=== PATIENT | female | born 1935 | race Caucasian/White ===

== ENCOUNTER 2020-05-21 09:21 | Inpatient (IN) ==
[2020-05-21] MEDS ORDERED: NORMAL SALINE 1,000 ML IV ONE ×3 (09:30→14:43)
--- NOTE | 2020-05-21 10:04 | ERNOTE ---
Dyspnea - Date Date of Service: 05/21/20 - General Presenting Symptoms: other - Low oxygen and not eating. Sores in her mouth. Time Seen by Provider: 05/21/20 09:27 Source: patient, EMS Exam Limitations: clinical condition - Immun/Allergies/Home Medications Immunizations: IMMUNIZATION HX Immunizations Up to Date Yes History of Influenza Vaccine Yes Hx Pneumococcal Vaccination Yes Allergies/Adverse Reactions: Allergies simvastatin [From Zocor] Adverse Reaction (Mild, Verified 05/21/20 17:19) MYALGIA Home Medications: HOME MEDICATIONS Durable Medical Equipment See Dose Instructions .ROUTE .MEDSUPPLY #1 ea 01/17/19 [Last Taken Unknown] ibuprofen 600 mg tablet 600 mg PO Q6H PRN #90 tab 01/17/19 [Last Taken Unknown] tramadol 50 mg tablet 50 mg PO Q6H PRN #60 tab 01/17/19 [Last Taken Unknown] aspirin 81 mg tablet,delayed release 81 mg PO DAILY #90 tab 11/15/19 [Last Taken Unknown] clopidogrel 75 mg tablet 75 mg PO DAILY #90 tab 11/15/19 [Last Taken Unknown] hydrochlorothiazide 25 mg tablet 25 mg PO DAILY #90 tab 11/15/19 [Last Taken Unknown] potassium chloride 10 mEq tablet,extended release 10 meq PO DAILY #90 tab 11/15/19 [Last Taken Unknown] acetaminophen 500 mg capsule 500 mg PO DAILY PRN #30 cap 03/24/20 [Last Taken Unknown] acetaminophen 500 mg capsule 500 mg PO TID #90 cap 03/25/20 [Last Taken Unknown] loperamide 2 mg tablet 2 mg PO .COMPLEX PRN #30 tab 05/15/20 [Last Taken Unknown] Alendronate Sodium [Fosamax] 70 mg PO TU 05/21/20 [Last Taken Unknown] Atorvastatin Calcium 40 mg PO HS 05/21/20 [Last Taken Unknown] Bisacodyl 5 mg PO DAILY PRN 05/21/20 [Last Taken Unknown] Docusate Sodium 200 mg PO DAILY 05/21/20 [Last Taken Unknown] Escitalopram Oxalate 5 mg PO DAILY 05/21/20 [Last Taken Unknown] Escitalopram Oxalate 10 mg PO DAILY 05/21/20 [Last Taken Unknown] Fexofenadine HCl [Aller-Ease] 180 mg PO DAILY 05/21/20 [Last Taken Unknown] Lisinopril [Zestril] 40 mg PO BID 05/21/20 [Last Taken Unknown] Omeprazole 20 mg PO QAM 05/21/20 [Last Taken Unknown] cholecalciferol (vitamin D3) 50 mcg (2,000 unit) tablet 1 tab PO DAILY 05/21/20 [Last Taken Unknown] - History of Present Illness Narrative: This patient is an 85-year-old female from [facility] the nursing homes. She is Covid positive, diagnosed 05/15. She is having increased oxygen needs at the home. She has sores in her mouth. She has not been eating. The patient denies pain or difficulty breathing. She denies fever. Review of Systems - Narrative Narrative: It is limited due to her decreased ability to talk. She answered negative to everything asked. Medical History (Last Reviewed 05/21/20 @ 10:02 by Joe Bai MD) Olecranon fracture (Acute) avulsion Hyperlipidemia (Chronic) Onset Date: Unknown Hypertension (Chronic) Onset Date: ~01/02/14 Depression (Chronic) Onset Date: Unknown Cholelithiasis (Chronic) Onset Date: ~11/2008 biliary colic CVA (cerebral vascular accident) (Chronic) Onset Date: ~05/201311/21/13 Right basal ganglia infarct Basal ganglia infarction (Chronic) Onset Date: ~01/02/14 Anxiety (Chronic) Onset Date: ~01/02/14 Radius fracture Onset Date: Unknown alone, unspecified part, closed. RIGHT Osteoporosis Onset Date: Unknown Postmenopausal bleeding Onset Date: Unknown Surgical History: Surgical History (Last Reviewed 05/21/20 @ 10:02 by Joe Bai MD) H/O colonoscopy Onset Date: ~2006 [facility] History of appendectomy Onset Date: Unknown Ruptured History of foot surgery Onset Date: Unknown History of open reduction and internal fixation (ORIF) procedure Onset Date: ~06/22/12 left proximal humerus fracture Hx laparoscopic cholecystectomy Onset Date: ~11/25/08 Tinguely; with mild lysis of adhesions Family History: Family History (Last Reviewed 05/21/20 @ 10:02 by Joe Bai MD) Mother Rectal cancer Father CVA (cerebral vascular accident) Other Cancer Hyperlipemia Hypertension Social History: (Last Reviewed 05/21/20 @ 10:02 by Joe Bai MD) Social History: adopted: No Marital status: / lives independently: No number of children: 3 current occupational status: retired current occupation: retired Highest level of school completed/degree received: Bachelor's degree Service: No Tobacco: Smoking Status: Former smoker Alcohol: alcohol intake: current alcohol intake frequency: a few times a month Substance Use: substance use type: does not use Dietary Habits: caffeine: Yes Physical Exam - Physical Exam General Appearance: Present: wd/wn, alert, no apparent distress Head Exam: Present: normal inspection, no evidence of injury Eye Exam: Normal inspection: bilateral Ears, Nose, Throat: Present: other - Normal externally. The oropharynx is crusty. No obvious lesions. Neck: Present: normal inspection, supple Respiratory: Present: no respiratory distress, lungs clear, decreased breath sounds Cardiovascular/Chest: Present: regular rate, rhythm, no murmur Gastrointestinal/Abdominal: Present: normal bowel sounds, nontender, nondistended, soft, no organomegaly Extremity Exam: Present: normal inspection Neurological Exam: Present: alert, other - Decreased speech and difficulty speaking likely due to the mouth issues. Skin Exam: Present: normal color, warm/dry Progress - Date and Time Seen: Date and Time: 05/22/20 00:18 The patient was reported to have some decreased mental functioning. There were some concerns by the senior care about worsening of a TIA. There is no specific concern as to why that might be. The patient initially seemed to have some confusion or decreased responsiveness. It was felt that this is likely due to the covid 19 and dehydration. It was elected not to get a CT scan of her head right away because she was covid positive and it would shut down the CT scanner. Another patient who was covid positive was getting a chest CT, so the CT head was done at that time. The patient arrived with hypoxia. This persisted. It worsened and high flow oxygen was started. The patient was somewhat restless. Her oxygenation reportedly seemed to be somewhat positional. The patient's daughter is an employee at the hospital. The staff talked with the daughter and she does not want heroic measures for her mother. The patient was made DNR. Dr. Yusuf was consulted and agreed to admit the patient. - Results and Orders Patient's Lab Results:: I have reviewed the patient's lab results. - Vital Signs Patient's Vital Signs:: I have reviewed the patient's vital signs. Vital Signs: Vital Signs 05/21/20 09:21 05/21/20 09:29 05/21/20 09:51 Temperature 36.0 C Pulse Rate 103 H 108 H 101 H Respiratory Rate 29 H 28 H Blood Pressure 149/75 O2 Sat by Pulse Oximetry 74 L 90 L 05/21/20 09:54 Temperature Pulse Rate 103 H Respiratory Rate 29 H Blood Pressure 151/80 H O2 Sat by Pulse Oximetry 85 L - X-Ray X-Ray #1 X-Ray: chest Interpretation: Reviewed by me X-ray Comments: Chest Single View *~ Exam Date: 05/21/2020 09:49 Ordering Physician: Joe Bai MD History: Decreased O2 sats. Covid positive. Technique: Portable AP view of the chest is evaluated without comparison. Findings: Diffuse chronic pleural and parenchymal scarring throughout. There is very subtle airspace disease throughout both lung jean right worse than left. Cardiac silhouette and pulmonary vasculature are normal. Aortic atherosclerosis. The osseous structures demonstrate degenerative changes of the spine and shoulders. Surgical hardware in the left proximal humerus. IMPRESSION: SUBTLE BILATERAL MULTIFOCAL PNEUMONIA Electronically signed by Christian Combs D.O.. - CT/Ultrasound CT/Ultrasound Narrative: CT Head W/O *~ Exam Date: 05/21/2020 12:25 Ordering Physician: Joe Bai MD Indication: Confusion. Covid positive Technique: Contiguous axial CT images through the brain without contrast. Series were run in both soft tissue and bone algorithm. Individualized dose optimization technique was used for the performed procedure including automated exposure control, adjustment of the mA and/or kV according to patient size and/or the iterative reconstruction technique. Comparison: No relevant priors Findings: There is scattered periventricular and subcortical white matter hypodensities consistent with chronic microvascular ischemic white matter disease. More focal encephalomalacia from chronic infarcts seen in the right insular cortex and basal ganglia and extension into the right frontal lobe There is diffuse brain atrophy with associated increasing size of the CSF containing spaces. There is no acute loss of calle-white differentiation appreciated. There is no mass effect or midline shift. No intra-axial or extra axial blood products identified. The visualized paranasal sinuses and mastoid air cells are clear. The skull base and calvarium are intact. IMPRESSION: NO ACUTE INTRACRANIAL ABNORMALITY IDENTIFIED. Electronically signed by Christian Combs D.O.. - Progress/Reassessment Chief Complaint: Dyspnea Departure Clinical Impression: Pneumonia due to COVID-19 virus, Hypoxemia, Dehydration - Departure Disposition: Still a patient Condition: Poor
[2020-05-21 11:23] LABS: Hematocrit 44.2 % (37.0-47.0); Hemoglobin 14.5 gm/dL (12.5-16.0); Mean Cell Volume 86.7 fl (78-100); Mean Corpuscular Hemoglobin 28.4 pg (27-31); Mean Corpuscular Hgb Conc 32.8 g/dl (32-36); Mean Platelet Volume 11.4 fl (8-12.5); Platelet Count 372 K/mm3 (150-450); Red Cell Distribution Width 14.3 % (11.5-14.0); White Blood Count 23.9 K/mm3 (4.0-10.5)
[2020-05-21 11:25] LABS: Total Cells Counted 100
[2020-05-21 11:38] LABS: Band 1 % (0-2.0); Lymphocyte 3 % (20-51); Monocyte 3 % (0-9); Neutrophil 93 % (42-75); Neutrophil # 22.2 K/mm3 (1.3-6.0)
[2020-05-21 11:40] LABS: Platelet Estimate Normal (NORMAL); RBC Morphology Normal (NORMAL)
[2020-05-21 11:43] LABS: Albumin * 2.6 gm/dl (3.4-5.0); Anion Gap 23.4 mmol/L (6.8-13.8); BUN/Creatinine Ratio 29.5 (9.0-21.6); Bilirubin, Total 0.5 mg/dL (0.0-1.1); Ca. Corrected For Albumin 9.1 mg/dL (8.4-10.2); Calcium * 8.3 mg/dL (7.9-10.9); Carbon Dioxide 16.4 mmol/L (24-32.6); Potassium 2.8 mmol/L (3.4-4.6); Total Protein 7.6 gm/dL (6.2-8.2)
[2020-05-21] MEDS ORDERED: cefTRIAXone SODIUM 1,000 MG/100 ML BAG IV ONE (11:46)
[2020-05-21] MEDS ORDERED: NON-FORMULARY 1 DOSE DOSE IV SCH (12:00)
[2020-05-21] MEDS ORDERED: METHYLPREDNISOLONE SOD SUCC/PF 125 MG/2 ML VIAL IV ONE (12:09)
[2020-05-21] MEDS ORDERED: AZITHROMYCIN 500 MG in DEXTROSE 5 % IN WATER 250 ML IV ONE ×2 (12:15)
[2020-05-21] MEDS: POTASSIUM CHLORIDE 20 MEQ in NORMAL SALINE 1,000 ML IV SCH ×2 (15:12→22:51)
[2020-05-21] MEDS ORDERED: LORazepam 2 MG/ML DISP.SYRIN IV ONE (16:11)
[2020-05-21] MEDS ORDERED: traMADol HCL 50 MG TABLET PO PRN (17:57)
[2020-05-21] MEDS: LORazepam 2 MG/ML DISP.SYRIN IV SCH ×2 (18:04→18:57)
[2020-05-21] MEDS ORDERED: [UNRECOGNIZED DRUG - OTHER] TP SCH (18:15)
--- NOTE | 2020-05-21 18:22 | HP ---
Chief Complaint - Chief Complaint Date of Service: 05/21/20 Time of Service: 18:17 Chief Complaint: Cough, shortness of breath, increased confusion History of Present Illness: This 85-year-old female developed a cough confusion fever and was brought to the emergency room where she is COVID-19 detected. Chest x-ray shows pulmonary infiltrates bilaterally consistent with COVID-19 pneumonia. She was subsequently admitted for the same plus acute respiratory failure with hypoxemia. Medical History (Last Reviewed 05/21/20 @ 10:02 by Joe Bai MD) Olecranon fracture (Acute) avulsion Hyperlipidemia (Chronic) Onset Date: Unknown Hypertension (Chronic) Onset Date: ~01/02/14 Depression (Chronic) Onset Date: Unknown Cholelithiasis (Chronic) Onset Date: ~11/2008 biliary colic CVA (cerebral vascular accident) (Chronic) Onset Date: ~05/201311/21/13 Right basal ganglia infarct Basal ganglia infarction (Chronic) Onset Date: ~01/02/14 Anxiety (Chronic) Onset Date: ~01/02/14 Radius fracture Onset Date: Unknown alone, unspecified part, closed. RIGHT Osteoporosis Onset Date: Unknown Postmenopausal bleeding Onset Date: Unknown Surgical History: Surgical History (Last Reviewed 05/21/20 @ 10:02 by Joe Bai MD) H/O colonoscopy Onset Date: ~2006 [place] History of appendectomy Onset Date: Unknown Ruptured History of foot surgery Onset Date: Unknown History of open reduction and internal fixation (ORIF) procedure Onset Date: ~06/22/12 left proximal humerus fracture Hx laparoscopic cholecystectomy Onset Date: ~11/25/08 Tinguely; with mild lysis of adhesions Family History: Family History (Last Reviewed 05/21/20 @ 10:02 by Joe Bai MD) Mother Rectal cancer Father CVA (cerebral vascular accident) Other Cancer Hyperlipemia Hypertension Social History: (Last Reviewed 05/21/20 @ 10:02 by Joe Bai MD) Social History: adopted: No Marital status: / lives independently: No number of children: 3 current occupational status: retired current occupation: retired Highest level of school completed/degree received: Bachelor's degree Service: No Tobacco: Smoking Status: Former smoker Alcohol: alcohol intake: current alcohol intake frequency: a few times a month Substance Use: substance use type: does not use Dietary Habits: caffeine: Yes Review Of Systems (GEN) - Review of Systems Generalized/Overall Review: Present: Weakness, Fever, Malaise EENTM: Present: No Symptoms Reported Respiratory: Present: Cough, Shortness of Breath, Wheezing Cardiac: Present: No Symptoms Reported Abdominal: Present: No Symptoms Reported Genitourinary: Present: No Symptoms Reported Musculoskeletal: Present: No Symptoms Reported Neurological: Present: No Symptoms Reported Skin: Present: No Symptoms Reported Endocrine: Present: No Symptoms Reported Misc: All systems neg except as marked Immunizations: IMMUNIZATION HX Immunizations Up to Date Yes History of Influenza Vaccine Yes Hx Pneumococcal Vaccination Yes Allergies/Adverse Reactions: Allergies Allergy/AdvReac Type Severity Reaction Status Date / Time simvastatin [From Zocor] AdvReac Mild MYALGIA Verified 05/21/20 17:19 Home Medications: HOME MEDICATIONS Durable Medical Equipment See Dose Instructions .ROUTE .MEDSUPPLY #1 ea 01/17/19 [Last Taken Unknown] ibuprofen 600 mg tablet 600 mg PO Q6H PRN #90 tab 01/17/19 [Last Taken Unknown] tramadol 50 mg tablet 50 mg PO Q6H PRN #60 tab 01/17/19 [Last Taken Unknown] aspirin 81 mg tablet,delayed release 81 mg PO DAILY #90 tab 11/15/19 [Last Taken Unknown] clopidogrel 75 mg tablet 75 mg PO DAILY #90 tab 11/15/19 [Last Taken Unknown] hydrochlorothiazide 25 mg tablet 25 mg PO DAILY #90 tab 11/15/19 [Last Taken Unknown] potassium chloride 10 mEq tablet,extended release 10 meq PO DAILY #90 tab 11/15/19 [Last Taken Unknown] acetaminophen 500 mg capsule 500 mg PO DAILY PRN #30 cap 03/24/20 [Last Taken Unknown] acetaminophen 500 mg capsule 500 mg PO TID #90 cap 03/25/20 [Last Taken Unknown] loperamide 2 mg tablet 2 mg PO .COMPLEX PRN #30 tab 05/15/20 [Last Taken Unknown] Alendronate Sodium [Fosamax] 70 mg PO TU 05/21/20 [Last Taken Unknown] Atorvastatin Calcium 40 mg PO HS 05/21/20 [Last Taken Unknown] Bisacodyl 5 mg PO DAILY PRN 05/21/20 [Last Taken Unknown] Docusate Sodium 200 mg PO DAILY 05/21/20 [Last Taken Unknown] Escitalopram Oxalate 5 mg PO DAILY 05/21/20 [Last Taken Unknown] Escitalopram Oxalate 10 mg PO DAILY 05/21/20 [Last Taken Unknown] Fexofenadine HCl [Aller-Ease] 180 mg PO DAILY 05/21/20 [Last Taken Unknown] Lisinopril [Zestril] 40 mg PO BID 05/21/20 [Last Taken Unknown] Omeprazole 20 mg PO QAM 05/21/20 [Last Taken Unknown] cholecalciferol (vitamin D3) 50 mcg (2,000 unit) tablet 1 tab PO DAILY 05/21/20 [Last Taken Unknown] Exam - Exam Vital Signs: Vital Signs - Last Taken Temp 35.7 C L 05/21/20 11:50 Pulse 102 H 05/21/20 16:16 Resp 16 05/21/20 15:47 BP 107/49 05/21/20 15:47 Pulse Ox 93 05/21/20 17:13 Constitutional: Present: Moderate distress, Elderly, Thin and frail ENT Exam: Present: normal ENT inspection, hearing grossly normal, pharynx normal Eye Exam: bilateral eye: normal inspection, PERRL, EOMI Neck: Present: supple, normal inspection, limited range of motion Back Exam: Present: normal inspection, no CVA tenderness, no vertebral tenderness Breasts: Present: Exam deferred Respiratory: Present: chest non-tender, lungs clear, normal breath sounds, no respiratory distress, no accessory muscle use Cardiovascular/Chest: Present: normal peripheral pulses, regular rate, rhythm, no chest tenderness, no edema, no gallop, no JVD, no murmur, no rub Peripheral Pulses: carotid (R): 2+, carotid (L): 2+, radial (R): 2+, radial (L): 2+ Abdomen: Present: Normal bowel sounds, soft, nontender, nondistended, no rebound tenderness, no hepatospenomegaly /Rectal: Present: Exam deferred Extremity: Present: normal range of motion, non-tender, normal inspection, no pedal edema Skin Exam: Present: normal color, warm/dry, no cyanosis Lymphatic: Present: no adenopathy Neurologic: Present: technician preventative medicine II-XII nml as tested, no motor/sensory deficits Appearance: Present: appropriate appearance, appropriate insight, neat, no memory impairment Eye contact: Present: uncooperative, other - Altered mental status, combative at times Diagnostic Studies: Abnormal Lab Results 05/21/20 05/21/20 05/21/20 Range/Units 09:32 11:00 11:00 WBC 23.9 H (4.0-10.5) K/mm3 RDW 14.3 H (11.5-14.0) % Neutrophils % (Manual) 93 H (42-75) % Lymphocytes % (Manual) 3 L (20-51) % Neutrophils # (Manual) 22.2 H (1.3-6.0) K/mm3 Lymphocytes # (Manual) 0.7 L (1.5-3.5) k/mm3 ESR (0-15) mm/hr D-Dimer (0.19-0.49) ug/mL pCO2 24.6 L (32.0-45.0) mmHg pO2 48.9 L (83.0-108.0) mmHg HCO3 15.8 L (21.0-28.0) mmol/L Total CO2 16.6 L (19.0-24.0) mmol/L Base Excess -6.5 L (-2.0-3.0) mmol/L ABG O2 Sat (Measured) 86.4 L (94.0-98.0) % Sodium 145 H (132-142) mmol/L Plasma Sodium 146 H (130-142) mmol/L Potassium 2.8 L (3.4-4.6) mmol/L Chloride 108 H (97-106) mmol/L Carbon Dioxide 16.4 L (24-32.6) mmol/L Anion Gap 23.4 H (6.8-13.8) mmol/L BUN 120 H (3-23) mg/dL Creatinine 4.07 H (0.4-1.4) mg/dL Est GFR (Non-Af Amer) 11 L D (60-130) mL/min BUN/Creatinine Ratio 29.5 H (9.0-21.6) Random Glucose 135 H (70-110) mg/dL Lactic Acid, Venous (0.4-2.0) mmol/L AST 123 H (0-48) U/L C-Reactive Prot, Quant (0.0-0.9) mg/dL Albumin 2.6 L (3.4-5.0) gm/dl Procalcitonin (0.05-0.50) ng/mL 05/21/20 05/21/20 05/21/20 Range/Units 11:00 11:00 11:00 WBC (4.0-10.5) K/mm3 RDW (11.5-14.0) % Neutrophils % (Manual) (42-75) % Lymphocytes % (Manual) (20-51) % Neutrophils # (Manual) (1.3-6.0) K/mm3 Lymphocytes # (Manual) (1.5-3.5) k/mm3 ESR 93 H (0-15) mm/hr D-Dimer (0.19-0.49) ug/mL pCO2 (32.0-45.0) mmHg pO2 (83.0-108.0) mmHg HCO3 (21.0-28.0) mmol/L Total CO2 (19.0-24.0) mmol/L Base Excess (-2.0-3.0) mmol/L ABG O2 Sat (Measured) (94.0-98.0) % Sodium (132-142) mmol/L Plasma Sodium (130-142) mmol/L Potassium (3.4-4.6) mmol/L Chloride (97-106) mmol/L Carbon Dioxide (24-32.6) mmol/L Anion Gap (6.8-13.8) mmol/L BUN (3-23) mg/dL Creatinine (0.4-1.4) mg/dL Est GFR (Non-Af Amer) (60-130) mL/min BUN/Creatinine Ratio (9.0-21.6) Random Glucose (70-110) mg/dL Lactic Acid, Venous 3.2 H* (0.4-2.0) mmol/L AST (0-48) U/L C-Reactive Prot, Quant (0.0-0.9) mg/dL Albumin (3.4-5.0) gm/dl Procalcitonin 1.31 H (0.05-0.50) ng/mL 05/21/20 05/21/20 05/21/20 Range/Units 11:00 11:00 14:10 WBC (4.0-10.5) K/mm3 RDW (11.5-14.0) % Neutrophils % (Manual) (42-75) % Lymphocytes % (Manual) (20-51) % Neutrophils # (Manual) (1.3-6.0) K/mm3 Lymphocytes # (Manual) (1.5-3.5) k/mm3 ESR (0-15) mm/hr D-Dimer 5.26 H (0.19-0.49) ug/mL pCO2 (32.0-45.0) mmHg pO2 (83.0-108.0) mmHg HCO3 (21.0-28.0) mmol/L Total CO2 (19.0-24.0) mmol/L Base Excess (-2.0-3.0) mmol/L ABG O2 Sat (Measured) (94.0-98.0) % Sodium (132-142) mmol/L Plasma Sodium (130-142) mmol/L Potassium (3.4-4.6) mmol/L Chloride (97-106) mmol/L Carbon Dioxide (24-32.6) mmol/L Anion Gap (6.8-13.8) mmol/L BUN (3-23) mg/dL Creatinine (0.4-1.4) mg/dL Est GFR (Non-Af Amer) (60-130) mL/min BUN/Creatinine Ratio (9.0-21.6) Random Glucose (70-110) mg/dL Lactic Acid, Venous 2.8 H* (0.4-2.0) mmol/L AST (0-48) U/L C-Reactive Prot, Quant 23.1 H (0.0-0.9) mg/dL Albumin (3.4-5.0) gm/dl Procalcitonin (0.05-0.50) ng/mL Laboratory Results WBC 23.9 K/mm3 (4.0-10.5) H 05/21/20 11:00 RBC 5.10 M/mm3 (4.2-5.4) 05/21/20 11:00 Hgb 14.5 gm/dL (12.5-16.0) 05/21/20 11:00 Hct 44.2 % (37.0-47.0) 05/21/20 11:00 MCV 86.7 fl (78-100) 05/21/20 11:00 MCH 28.4 pg (27-31) 05/21/20 11:00 MCHC 32.8 g/dl (32-36) 05/21/20 11:00 RDW 14.3 % (11.5-14.0) H 05/21/20 11:00 Plt Count 372 K/mm3 (150-450) 05/21/20 11:00 MPV 11.4 fl (8-12.5) 05/21/20 11:00 Neutrophils % (Manual) 93 % (42-75) H 05/21/20 11:00 Band Neuts % (Manual) 1 % (0-2.0) 05/21/20 11:00 Lymphocytes % (Manual) 3 % (20-51) L 05/21/20 11:00 Monocytes % (Manual) 3 % (0-9) 05/21/20 11:00 Neutrophils # (Manual) 22.2 K/mm3 (1.3-6.0) H 05/21/20 11:00 Lymphocytes # (Manual) 0.7 k/mm3 (1.5-3.5) L 05/21/20 11:00 Monocytes # (Manual) 0.7 k/mm3 (0.0-1.0) 05/21/20 11:00 Platelet Estimate Normal (NORMAL) 05/21/20 11:00 RBC Morphology Normal (NORMAL) 05/21/20 11:00 ESR 93 mm/hr (0-15) H 05/21/20 11:00 D-Dimer 5.26 ug/mL (0.19-0.49) H 05/21/20 11:00 pCO2 24.6 mmHg (32.0-45.0) L 05/21/20 09:32 pO2 48.9 mmHg (83.0-108.0) L 05/21/20 09:32 HCO3 15.8 mmol/L (21.0-28.0) L 05/21/20 09:32 Total CO2 16.6 mmol/L (19.0-24.0) L 05/21/20 09:32 Base Excess -6.5 mmol/L (-2.0-3.0) L 05/21/20 09:32 ABG pH 7.43 (7.35-7.45) 05/21/20 09:32 ABG O2 Sat (Measured) 86.4 % (94.0-98.0) L 05/21/20 09:32 Sodium 145 mmol/L (132-142) H 05/21/20 11:00 Plasma Sodium 146 mmol/L (130-142) H 05/21/20 11:00 Potassium 2.8 mmol/L (3.4-4.6) L 05/21/20 11:00 Chloride 108 mmol/L (97-106) H 05/21/20 11:00 Carbon Dioxide 16.4 mmol/L (24-32.6) L 05/21/20 11:00 Anion Gap 23.4 mmol/L (6.8-13.8) H 05/21/20 11:00 BUN 120 mg/dL (3-23) H 05/21/20 11:00 Creatinine 4.07 mg/dL (0.4-1.4) H 05/21/20 11:00 Est GFR (Non-Af Amer) 11 mL/min (60-130) L D 05/21/20 11:00 BUN/Creatinine Ratio 29.5 (9.0-21.6) H 05/21/20 11:00 Random Glucose 135 mg/dL (70-110) H 05/21/20 11:00 Lactic Acid, Venous 2.8 mmol/L (0.4-2.0) H* 05/21/20 14:10 Calcium 8.3 mg/dL (7.9-10.9) 05/21/20 11:00 Calcium Adj for Albumin 9.1 mg/dL (8.4-10.2) 05/21/20 11:00 Total Bilirubin 0.5 mg/dL (0.0-1.1) 05/21/20 11:00 AST 123 U/L (0-48) H 05/21/20 11:00 ALT 44 U/L (19-67) 05/21/20 11:00 Alkaline Phosphatase 73 U/L (50-170) 05/21/20 11:00 C-Reactive Prot, Quant 23.1 mg/dL (0.0-0.9) H 05/21/20 11:00 Total Protein 7.6 gm/dL (6.2-8.2) 05/21/20 11:00 Albumin 2.6 gm/dl (3.4-5.0) L 05/21/20 11:00 Procalcitonin 1.31 ng/mL (0.05-0.50) H 05/21/20 11:00
[2020-05-21] MEDS: LORazepam 2 MG/ML DISP.SYRIN IV PRN ×2 (19:23→22:49)
[2020-05-21] MEDS ORDERED: DEXAMETHASONE 2 MG TABLET PO SCH (19:45)
[2020-05-21] MEDS: CLOPIDOGREL BISULFATE 75 MG TABLET PO SCH (20:02)
[2020-05-21] MEDS: ASPIRIN 81 MG TABLET.DR PO SCH (20:02)
[2020-05-21] MEDS: ENOXAPARIN SODIUM 30 MG/0.3 ML SYRG SC SCH (20:12)
[2020-05-22] MEDS: POTASSIUM CHLORIDE 20 MEQ in NORMAL SALINE 1,000 ML IV SCH ×3 (02:41→12:55)
[2020-05-22] MEDS: LORazepam 2 MG/ML DISP.SYRIN IV PRN ×3 (04:57→23:32)
[2020-05-22 08:00] LABS: Hematocrit 40.4 % (37.0-47.0); Hemoglobin 12.8 gm/dL (12.5-16.0); Mean Cell Volume 88.8 fl (78-100); Mean Corpuscular Hemoglobin 28.1 pg (27-31); Mean Corpuscular Hgb Conc 31.7 g/dl (32-36); Platelet Count 327 K/mm3 (150-450); Red Blood Count 4.55 M/mm3 (4.2-5.4); Red Cell Distribution Width 14.6 % (11.5-14.0)
[2020-05-22 08:01] LABS: Total Cells Counted 100
[2020-05-22] MEDS: METHYLPREDNISOLONE SOD SUCC/PF 40 MG/ML VIAL IV SCH (08:05)
[2020-05-22] MEDS: NYSTATIN 15 APPL TUBE TP SCH ×2 (08:05→23:00)
[2020-05-22 08:11] LABS: Lymphocyte 1 % (20-51); Monocyte 2 % (0-9); Neutrophil 97 % (42-75); Neutrophil # 28.1 K/mm3 (1.3-6.0)
[2020-05-22 08:12] LABS: Platelet Estimate Normal (NORMAL); RBC Morphology Normal (NORMAL)
[2020-05-22 08:16] LABS: Albumin * 2.3 gm/dl (3.4-5.0); Anion Gap 19.2 mmol/L (6.8-13.8); BUN/Creatinine Ratio 40.3 (9.0-21.6); Bilirubin, Total 0.4 mg/dL (0.0-1.1); Ca. Corrected For Albumin 8.3 mg/dL (8.4-10.2); Calcium * 7.3 mg/dL (7.9-10.9); Carbon Dioxide 17.2 mmol/L (24-32.6); Potassium 3.4 mmol/L (3.4-4.6); Total Protein 7.1 gm/dL (6.2-8.2)
[2020-05-22] MEDS: ACETAMINOPHEN 500 MG TABLET PO SCH ×3 (08:39→17:45)
[2020-05-22] MEDS: CLOPIDOGREL BISULFATE 75 MG TABLET PO SCH (08:39)
[2020-05-22] MEDS: ASPIRIN 81 MG TABLET.DR PO SCH (08:44)
[2020-05-22] MEDS ORDERED: AZITHROMYCIN 250 MG TABLET PO SCH (09:00)
[2020-05-22] MEDS ORDERED: METHYLPREDNISOLONE SOD SUCC/PF 125 MG/2 ML VIAL IV SCH (09:00)
--- NOTE | 2020-05-22 09:33 | PN ---
Subjective - Date and Time Seen Date: 05/22/20 Time: 07:50 Subjective Narrative: Ed has had a bit of a fitful night. She was on 15 L of O2 with a NRB mask and was only satting around 87%. We placed her on CPAP pressure of 10 and her sats have been above 91% majority of the time. The mask is taken off she desaturates quickly. She cannot follow commands because of her dementia. Her aspirin, Plavix, and azithromycin were crushed and got into her mouth but then she spit it out. She cannot keep the oxygen off long enough to try to eat at this point. Reviewing her lab work her white count is gone from 23,000-29,000. Her EGFR improved from 11-21. Potassium has improved from 2.8-3.2. Lab work still looks as though she is very dehydrated however. Also her sodium jumped up into the 154 range using normal saline. She had about 3 L infused and then I had him saline lock the IV pending lab this morning. I will start her back on D5 half- normal saline with 20 of potassium at 125 cc/h for 3 L and we will recheck lab again tomorrow morning. Objective - Review of Systems Generalized/Overall Review: Reports: Weakness EENTM: Reports: No Symptoms Reported Respiratory: Reports: Cough, Shortness of Breath Cardiac: Reports: No Symptoms Reported Abdominal: Reports: No Symptoms Reported Genitourinary Symptoms: Reports: No Symptoms Reported Musculoskeletal Complaints: Reports: No Symptoms Reported Neurological: Reports: No Symptoms Reported Skin: Reports: No Symptoms Reported Endocrine: Reports: No Symptoms Reported Misc: All systems neg except as marked - Vitals Vitals: Last Vital Signs Temp 36.4 C 05/22/20 07:52 Pulse 92 05/22/20 08:54 Resp 23 H 05/22/20 08:54 BP 188/90 H 05/22/20 07:52 Pulse Ox 97 05/22/20 08:54 - Abnormal Lab Findings Abnormal Lab Findings: Abnormal Lab Results 05/21/20 05/21/20 05/21/20 Range/Units 09:32 11:00 11:00 WBC 23.9 H (4.0-10.5) K/mm3 MCHC (32-36) g/dl RDW 14.3 H (11.5-14.0) % Neutrophils % (Manual) 93 H (42-75) % Lymphocytes % (Manual) 3 L (20-51) % Neutrophils # (Manual) 22.2 H (1.3-6.0) K/mm3 Lymphocytes # (Manual) 0.7 L (1.5-3.5) k/mm3 ESR (0-15) mm/hr D-Dimer (0.19-0.49) ug/mL pCO2 24.6 L (32.0-45.0) mmHg pO2 48.9 L (83.0-108.0) mmHg HCO3 15.8 L (21.0-28.0) mmol/L Total CO2 16.6 L (19.0-24.0) mmol/L Base Excess -6.5 L (-2.0-3.0) mmol/L ABG O2 Sat (Measured) 86.4 L (94.0-98.0) % Sodium 145 H (132-142) mmol/L Plasma Sodium 146 H (130-142) mmol/L Potassium 2.8 L (3.4-4.6) mmol/L Chloride 108 H (97-106) mmol/L Carbon Dioxide 16.4 L (24-32.6) mmol/L Anion Gap 23.4 H (6.8-13.8) mmol/L BUN 120 H (3-23) mg/dL Creatinine 4.07 H (0.4-1.4) mg/dL Est GFR (Non-Af Amer) 11 L D (60-130) mL/min BUN/Creatinine Ratio 29.5 H (9.0-21.6) Random Glucose 135 H (70-110) mg/dL Lactic Acid, Venous (0.4-2.0) mmol/L Calcium (7.9-10.9) mg/dL Calcium Adj for Albumin (8.4-10.2) mg/dL AST 123 H (0-48) U/L C-Reactive Prot, Quant (0.0-0.9) mg/dL Albumin 2.6 L (3.4-5.0) gm/dl Procalcitonin (0.05-0.50) ng/mL 05/21/20 05/21/20 05/21/20 Range/Units 11:00 11:00 11:00 WBC (4.0-10.5) K/mm3 MCHC (32-36) g/dl RDW (11.5-14.0) % Neutrophils % (Manual) (42-75) % Lymphocytes % (Manual) (20-51) % Neutrophils # (Manual) (1.3-6.0) K/mm3 Lymphocytes # (Manual) (1.5-3.5) k/mm3 ESR 93 H (0-15) mm/hr D-Dimer (0.19-0.49) ug/mL pCO2 (32.0-45.0) mmHg pO2 (83.0-108.0) mmHg HCO3 (21.0-28.0) mmol/L Total CO2 (19.0-24.0) mmol/L Base Excess (-2.0-3.0) mmol/L ABG O2 Sat (Measured) (94.0-98.0) % Sodium (132-142) mmol/L Plasma Sodium (130-142) mmol/L Potassium (3.4-4.6) mmol/L Chloride (97-106) mmol/L Carbon Dioxide (24-32.6) mmol/L Anion Gap (6.8-13.8) mmol/L BUN (3-23) mg/dL Creatinine (0.4-1.4) mg/dL Est GFR (Non-Af Amer) (60-130) mL/min BUN/Creatinine Ratio (9.0-21.6) Random Glucose (70-110) mg/dL Lactic Acid, Venous 3.2 H* (0.4-2.0) mmol/L Calcium (7.9-10.9) mg/dL Calcium Adj for Albumin (8.4-10.2) mg/dL AST (0-48) U/L C-Reactive Prot, Quant (0.0-0.9) mg/dL Albumin (3.4-5.0) gm/dl Procalcitonin 1.31 H (0.05-0.50) ng/mL 05/21/20 05/21/20 05/21/20 Range/Units 11:00 11:00 14:10 WBC (4.0-10.5) K/mm3 MCHC (32-36) g/dl RDW (11.5-14.0) % Neutrophils % (Manual) (42-75) % Lymphocytes % (Manual) (20-51) % Neutrophils # (Manual) (1.3-6.0) K/mm3 Lymphocytes # (Manual) (1.5-3.5) k/mm3 ESR (0-15) mm/hr D-Dimer 5.26 H (0.19-0.49) ug/mL pCO2 (32.0-45.0) mmHg pO2 (83.0-108.0) mmHg HCO3 (21.0-28.0) mmol/L Total CO2 (19.0-24.0) mmol/L Base Excess (-2.0-3.0) mmol/L ABG O2 Sat (Measured) (94.0-98.0) % Sodium (132-142) mmol/L Plasma Sodium (130-142) mmol/L Potassium (3.4-4.6) mmol/L Chloride (97-106) mmol/L Carbon Dioxide (24-32.6) mmol/L Anion Gap (6.8-13.8) mmol/L BUN (3-23) mg/dL Creatinine (0.4-1.4) mg/dL Est GFR (Non-Af Amer) (60-130) mL/min BUN/Creatinine Ratio (9.0-21.6) Random Glucose (70-110) mg/dL Lactic Acid, Venous 2.8 H* (0.4-2.0) mmol/L Calcium (7.9-10.9) mg/dL Calcium Adj for Albumin (8.4-10.2) mg/dL AST (0-48) U/L C-Reactive Prot, Quant 23.1 H (0.0-0.9) mg/dL Albumin (3.4-5.0) gm/dl Procalcitonin (0.05-0.50) ng/mL 05/22/20 05/22/20 Range/Units 07:45 07:45 WBC 29.0 H D (4.0-10.5) K/mm3 MCHC 31.7 L (32-36) g/dl RDW 14.6 H (11.5-14.0) % Neutrophils % (Manual) 97 H (42-75) % Lymphocytes % (Manual) 1 L (20-51) % Neutrophils # (Manual) 28.1 H (1.3-6.0) K/mm3 Lymphocytes # (Manual) 0.3 L (1.5-3.5) k/mm3 ESR (0-15) mm/hr D-Dimer (0.19-0.49) ug/mL pCO2 (32.0-45.0) mmHg pO2 (83.0-108.0) mmHg HCO3 (21.0-28.0) mmol/L Total CO2 (19.0-24.0) mmol/L Base Excess (-2.0-3.0) mmol/L ABG O2 Sat (Measured) (94.0-98.0) % Sodium 153 H (132-142) mmol/L Plasma Sodium 154 H (130-142) mmol/L Potassium (3.4-4.6) mmol/L Chloride 120 H (97-106) mmol/L Carbon Dioxide 17.2 L (24-32.6) mmol/L Anion Gap 19.2 H (6.8-13.8) mmol/L BUN 95 H (3-23) mg/dL Creatinine 2.36 H D (0.4-1.4) mg/dL Est GFR (Non-Af Amer) 21 L D (60-130) mL/min BUN/Creatinine Ratio 40.3 H (9.0-21.6) Random Glucose 148 H (70-110) mg/dL Lactic Acid, Venous (0.4-2.0) mmol/L Calcium 7.3 L (7.9-10.9) mg/dL Calcium Adj for Albumin 8.3 L (8.4-10.2) mg/dL AST 145 H (0-48) U/L C-Reactive Prot, Quant (0.0-0.9) mg/dL Albumin 2.3 L (3.4-5.0) gm/dl Procalcitonin (0.05-0.50) ng/mL - Exam Constitutional: Present: Elderly, Thin and frail ENT Exam: Present: normal ENT inspection, hearing grossly normal, pharynx normal Neck: Present: non-tender, full range of motion, supple Breasts: Present: Exam deferred Respiratory: Present: chest non-tender, rhonchi, No wheezing Cardiovascular/Chest: Present: normal peripheral pulses, regular rate, rhythm, no chest tenderness, no edema, no gallop, no JVD, no murmur Abdomen: Present: Normal bowel sounds, soft, nontender, nondistended, no rebound tenderness, no hepatospenomegaly, no masses /Rectal: Present: Exam deferred Extremity: Present: normal range of motion Skin Exam: Present: other - Significant bruising on both lower extremities particularly about the knees. Lymphatic: Present: no adenopathy Neurologic: Present: other - Difficult to assess since she cannot respond to questions or follow commands. Appearance: Present: appropriate appearance, neat, impaired insight, impaired recent memory, impaired remote memory Eye contact: Present: uncooperative, other - Unable to cooperate Thoughts: Present: incoherent Assessment/Plan Plan Narrative: 1. Continue current antibiotics 2. Continue isolation due to Covid detected 3. Change all meds to IV and DC all p.o. orders 4. Solu-Medrol 80 mg IV once daily 5. Continue enoxaparin subcu 6. Continue CPAP 7. Start D5 half-normal saline with 20 of potassium at 125 cc/h. 8. Prognosis is poor. - Problems/Diagnosis (1) Pneumonia due to COVID-19 virus Problem: Acute (2) Hypoxemia Problem: Acute (3) Dehydration Problem: Acute (4) CRF (chronic renal failure) Problem: Chronic Qualifiers: Chronic kidney disease stage: stage 3 (moderate) (5) CVA (cerebral vascular accident) Problem: Chronic Qualifiers: CVA mechanism: embolism Precerebral and cerebral artery: unspecified precerebral artery Qualified Code(s): I63.10 - Cerebral infarction due to e mbolism of unspecified precerebral artery (6) Bruise Problem: Acute
[2020-05-22] MEDS ORDERED: ENALAPRILAT DIHYDRATE 1.25 MG/ML VIAL IV ONE ×2 (09:35→10:48)
[2020-05-22 10:47] LABS: Urine Bilirubin Negative (NEGATIVE); Urine Blood 50 /ul (NEGATIVE); Urine Ketone Negative (NEGATIVE); Urine Nitrite Negative (NEGATIVE); Urine Protein 15 mg/dL (NEGATIVE); Urine Urobilinogen Normal (NORMAL); Urine pH 5.5 pH (5.0-7.0)
[2020-05-22] MEDS: POTASSIUM CHLORIDE 20 MEQ in DEXTROSE 5%-0.5 NORMAL SALINE 990 ML IV SCH ×2 (10:48→19:17)
[2020-05-22 10:54] LABS: Urine Appearance Slightly Cloudy (CLEAR); Urine Color Yellow
[2020-05-22 10:55] LABS: Urine Amorphous Sediment Moderate - 2+ (NONE-FEW); Urine Bacteria 2+; Urine Mucus Few - 1+; Urine RBC 0-5 /hpf (0-5); Urine WBC 0-5 /hpf (0-5)
[2020-05-22] MEDS ORDERED: ENALAPRILAT DIHYDRATE 1.25 MG/ML VIAL IV PRN (14:54)
[2020-05-22] MEDS: PANTOPRAZOLE SODIUM 40 MG in NORMAL SALINE 100 ML IV SCH (17:45)
[2020-05-22] MEDS: ENOXAPARIN SODIUM 30 MG/0.3 ML SYRG SC SCH (19:19)
[2020-05-22 20:40] LABS: Prothrombin Time (Patient) 13.3 Seconds (9.1-10.7)
[2020-05-22 20:42] LABS: INR 1.36 INR (0.92-1.08); Partial Thrombolplastin Time 25.4 Seconds (24-32)
[2020-05-23] MEDS: LORazepam 2 MG/ML DISP.SYRIN IV PRN ×4 (04:50→21:11)
[2020-05-23] MEDS: PANTOPRAZOLE SODIUM 40 MG in NORMAL SALINE 100 ML IV SCH ×2 (05:02→17:04)
[2020-05-23] MEDS: POTASSIUM CHLORIDE 20 MEQ in DEXTROSE 5%-0.5 NORMAL SALINE 990 ML IV SCH (05:02)
[2020-05-23 06:57] LABS: Hematocrit 38.1 % (37.0-47.0); Hemoglobin 11.9 gm/dL (12.5-16.0); Mean Cell Volume 90.7 fl (78-100); Mean Corpuscular Hemoglobin 28.3 pg (27-31); Mean Corpuscular Hgb Conc 31.2 g/dl (32-36); Mean Platelet Volume 11.4 fl (8-12.5); Platelet Count 320 K/mm3 (150-450); White Blood Count 28.4 K/mm3 (4.0-10.5)
[2020-05-23 07:02] LABS: Total Cells Counted 100
[2020-05-23 07:14] LABS: Albumin * 2.1 gm/dl (3.4-5.0); Anion Gap 19.9 mmol/L (6.8-13.8); BUN/Creatinine Ratio 36.7 (9.0-21.6); Bilirubin, Total 0.3 mg/dL (0.0-1.1); Ca. Corrected For Albumin 8.8 mg/dL (8.4-10.2); Calcium * 7.6 mg/dL (7.9-10.9); Carbon Dioxide 15.9 mmol/L (24-32.6); Potassium 3.8 mmol/L (3.4-4.6); Total Protein 6.8 gm/dL (6.2-8.2)
[2020-05-23 08:36] LABS: Band 2 % (0-2.0); Lymphocyte 1 % (20-51); Monocyte 3 % (0-9); Neutrophil 94 % (42-75); Neutrophil # 26.7 K/mm3 (1.3-6.0); Platelet Estimate Normal (NORMAL); RBC Morphology Normal (NORMAL)
[2020-05-23] MEDS: METHYLPREDNISOLONE SOD SUCC/PF 40 MG/ML VIAL IV SCH (08:40)
[2020-05-23] MEDS: NYSTATIN 15 APPL TUBE TP SCH ×2 (08:40→21:22)
[2020-05-23] MEDS: ACETAMINOPHEN 500 MG TABLET PO SCH ×3 (08:41→17:04)
[2020-05-23] MEDS ORDERED: POTASSIUM CHLORIDE 20 MEQ in DEXTROSE 5 % IN WATER 1,000 ML IV PRN ×2 (12:26)
[2020-05-23] MEDS ORDERED: POTASSIUM CHLORIDE 20 MEQ in DEXTROSE 5 % IN WATER 1,000 ML IV SCH ×2 (12:45)
--- NOTE | 2020-05-23 14:17 | PN ---
Subjective - Date and Time Seen Date: 05/23/20 Time: 13:30 Subjective Narrative: Adina continues to stay about the same from a respiratory perspective. From a metabolic perspective she is improving a lot. I called her name and she tried to open her eyes but her eyes were stuck. I helped her open and then she was able to focus on me. She has CPAP on. There is no temps to be verbal. She desaturates very quickly with the CPAP off and so feeding her has not been an option to this point. Vital signs: Temperature 35.6, pulse is 81, BP 167/94 this morning, respiratory rate is 24 and is down from 27 earlier this morning. Her O2 sat is 97% and her FiO2 is 70% on CPAP. Lab: CBC shows a white count of 28,400 down from 29,000 yesterday. There are 94% neutrophils and 2% bandemia. Hemoglobin is 11.9 g due to rehydration and hemodilution. Yesterday I reduced the IV solution from normal saline to half- normal with D5W and 20 of potassium and continue to do 125 cc/h. Her sodium has gone up again 256. Her potassium is now in normal range at 3.8. The chloride h as improved to 124, and the CO2 is 15.9. Her glucose is 177 and is elevated due to steroids and getting glucose in her IV solution. Her lactic acid on admission was 2.7 and today is normal at 1.8. It was 1.7 yesterday. The AST remains elevated and was 123 on admission increased to 145 yesterday and down to 134 today. The ALT and bilirubin are normal. Etiology is uncertain for the AST elevation. The albumin has been dropping from admission of 2.6 yesterday 2.3 and today is 2.1 but she is getting no oral nutrition. Renal status is improving. The BUN has dropped from 120 on admission to 95 yesterday to 66 today. The creatinine has dropped from 0.4 0.07 on admission to 2.36 yesterday to 1.80 today. The EGFR has improved from 11 on admission to 21 yesterday to 28 today. Objective - Review of Systems Generalized/Overall Review: Reports: Weakness, Malaise EENTM: Reports: No Symptoms Reported Respiratory: Reports: Cough, Shortness of Breath Cardiac: Reports: No Symptoms Reported Abdominal: Reports: No Symptoms Reported Genitourinary Symptoms: Reports: Incontinent, Other - Urinary retention with overflow incontinence Musculoskeletal Complaints: Reports: No Symptoms Reported Neurological: Reports: Other - Advanced dementia Skin: Reports: Bruising, Other - Abrasions to the knees with good eschar and no infection Endocrine: Reports: No Symptoms Reported - Vitals Vitals: Last Vital Signs Temp 35.6 C L 05/23/20 08:30 Pulse 81 05/23/20 13:00 Resp 24 H 05/23/20 13:00 BP 167/94 H 05/23/20 08:30 Pulse Ox 97 05/23/20 13:00 - Abnormal Lab Findings Abnormal Lab Findings: Abnormal Lab Results 05/22/20 05/23/20 05/23/20 Range/Units 20:28 06:45 06:45 WBC 28.4 H (4.0-10.5) K/mm3 Hgb 11.9 L (12.5-16.0) gm/dL MCHC 31.2 L (32-36) g/dl RDW 15.0 H (11.5-14.0) % Neutrophils % (Manual) 94 H (42-75) % Lymphocytes % (Manual) 1 L (20-51) % Neutrophils # (Manual) 26.7 H (1.3-6.0) K/mm3 Lymphocytes # (Manual) 0.3 L (1.5-3.5) k/mm3 PT 13.3 H (9.1-10.7) Seconds INR (Anticoag Therapy) 1.36 H (0.92-1.08) INR Sodium 156 H (132-142) mmol/L Plasma Sodium 157 H (130-142) mmol/L Chloride 124 H (97-106) mmol/L Carbon Dioxide 15.9 L (24-32.6) mmol/L Anion Gap 19.9 H (6.8-13.8) mmol/L BUN 66 H (3-23) mg/dL Creatinine 1.80 H D (0.4-1.4) mg/dL Est GFR (Non-Af Amer) 28 L D (60-130) mL/min BUN/Creatinine Ratio 36.7 H (9.0-21.6) Random Glucose 177 H (70-110) mg/dL Calcium 7.6 L (7.9-10.9) mg/dL AST 134 H (0-48) U/L Albumin 2.1 L (3.4-5.0) gm/dl - EKG/Xray Findings EKG read: Reviewed by me XRAY: chest Interpretation: Reviewed by me - Exam Constitutional: Present: Alert, Oriented x3, Cooperative, Well developed, Well nourished ENT Exam: Present: normal ENT inspection, hearing grossly normal, pharynx normal, TMs normal Neck: Present: non-tender, full range of motion, supple Breasts: Present: Exam deferred Respiratory: Present: chest non-tender, rhonchi Cardiovascular/Chest: Present: normal peripheral pulses, regular rate, rhythm, no chest tenderness, no edema, no gallop, no JVD, no murmur, no rub Abdomen: Present: Normal bowel sounds, soft, nontender, nondistended, no rebound tenderness, no hepatospenomegaly, no masses /Rectal: Present: Exam deferred Extremity: Present: normal range of motion, non-tender, normal inspection, no pedal edema, no calf tenderness Skin Exam: Present: normal color, other - With bruising and abrasions to the lower extremities particularly the knees Lymphatic: Present: no adenopathy 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 Change IV to D5 normal with 20 of K at 83 cc/h 2. Recheck CBC and CMP again in the morning 3. Wean FiO2 as O2 sats allow. 4. Continue antibiotics. - Problems/Diagnosis (1) Pneumonia due to COVID-19 virus Problem: Acute (2) Hypoxemia Problem: Acute (3) Dehydration Problem: Acute (4) CRF (chronic renal failure) Problem: Chronic Qualifiers: Chronic kidney disease stage: stage 3 (moderate) (5) CVA (cerebral vascular accident) Problem: Chronic Qualifiers: CVA mechanism: embolism Precerebral and cerebral artery: unspecified precerebral artery Qualified Code(s): I63.10 - Cerebral infarction due to embolism of unspecified precerebral artery (6) Bruise Problem: Acute (7) Sepsis due to severe acute respiratory syndrome coronavirus 2 (SARS-CoV-2) Problem: Acute (8) Acute kidney injury Problem: Acute (9) Acute kidney injury Problem: Acute (10) Secondary bacterial pneumonia Problem: Acute
[2020-05-23] MEDS: MORPHINE SULFATE 4 MG/ML SYRG IV PRN ×2 (19:36→22:26)
[2020-05-23] MEDS: ENOXAPARIN SODIUM 30 MG/0.3 ML SYRG SC SCH (21:10)
[2020-05-24] MEDS: LORazepam 2 MG/ML DISP.SYRIN IV PRN ×6 (00:53→21:22)
[2020-05-24] MEDS: MORPHINE SULFATE 4 MG/ML SYRG IV PRN (01:40)
[2020-05-24] MEDS: PANTOPRAZOLE SODIUM 40 MG in NORMAL SALINE 100 ML IV SCH ×2 (04:15→16:20)
[2020-05-24 07:35] LABS: Hemoglobin 12.8 gm/dL (12.5-16.0); Mean Cell Volume 90.3 fl (78-100); Mean Corpuscular Hemoglobin 28.2 pg (27-31); Mean Corpuscular Hgb Conc 31.2 g/dl (32-36); Platelet Count 300 K/mm3 (150-450); Red Blood Count 4.54 M/mm3 (4.2-5.4); Red Cell Distribution Width 15.2 % (11.5-14.0); White Blood Count 22.9 K/mm3 (4.0-10.5)
[2020-05-24 07:40] LABS: Total Cells Counted 100
[2020-05-24 07:48] LABS: Albumin * 2.3 gm/dl (3.4-5.0); Anion Gap 15.3 mmol/L (6.8-13.8); BUN/Creatinine Ratio 30.7 (9.0-21.6); Bilirubin, Total 0.5 mg/dL (0.0-1.1); Ca. Corrected For Albumin 8.7 mg/dL (8.4-10.2); Calcium * 7.7 mg/dL (7.9-10.9); Carbon Dioxide 26.4 mmol/L (24-32.6); Potassium 3.7 mmol/L (3.4-4.6); Total Protein 7.1 gm/dL (6.2-8.2)
[2020-05-24 08:35] LABS: Lymphocyte 4 % (20-51); Monocyte 3 % (0-9); Neutrophil 93 % (42-75); Neutrophil # 21.3 K/mm3 (1.3-6.0); Platelet Estimate Normal (NORMAL)
[2020-05-24 08:36] LABS: RBC Morphology Normal (NORMAL)
[2020-05-24] MEDS: ACETAMINOPHEN 500 MG TABLET PO SCH ×3 (08:39→16:18)
[2020-05-24] MEDS: METHYLPREDNISOLONE SOD SUCC/PF 40 MG/ML VIAL IV SCH (08:40)
[2020-05-24] MEDS: NYSTATIN 15 APPL TUBE TP SCH ×2 (08:52→20:34)
[2020-05-24] MEDS: MORPHINE SULFATE 2 MG/ML DISP.SYRIN IV PRN ×5 (09:00→21:22)
[2020-05-24] MEDS ORDERED: POTASSIUM CHLORIDE 20 MEQ in DEXTROSE 5 % IN WATER 1,000 ML IV PRN ×2 (11:40)
[2020-05-24] MEDS: POTASSIUM CHLORIDE 20 MEQ in DEXTROSE 5 % IN WATER 1,000 ML IV SCH ×6 (11:52→23:06)
--- NOTE | 2020-05-24 12:47 | PN ---
Subjective - Date and Time Seen Date: 05/24/20 Time: 11:15 Subjective Narrative: Adina seems to be stable with her oxygenation with CPAP at a pressure of 10 and a FiO2 of 70%. Her heart rate however has become erratic. This appears to be in SVT intermittently and with frequent PACs. There is a short [place] interval but it seems to be consistent. The skin Gaulding is being aggressively treated and having a Aragon catheter placed will help. She does open her eyes when her name is called but there is no attempt at verbal response. Vital signs: Pulse was 145 and then slowed back to 90. Respiratory rate is 19- 24. Temperature is 35.8. O2 sat is 93%. Urine output was 700 cc this morning. Lab: The CBC shows an improvement in the white count dropping to 22,900 with 4% bandemia. Hemoglobin is 12.8 g. Electrolytes show sodium has continued to rise and is at 166 in spite of being changed to D5W yesterday. The chloride is also gone up to 127. The BUN has improved dropping to 54 and the creatinine has improved dropping to 1.76 and the EGFR has improved to 29. Glucose is 141. The AST has been elevated and has dropped to 117. The albumin is at 2.3 today. No new imaging studies to report. Objective - Review of Systems Generalized/Overall Review: Reports: Weakness, Malaise, Fatigue. Denies: Chills, Fever, Diaphoresis EENTM: Reports: No Symptoms Reported Respiratory: Reports: Shortness of Breath Cardiac: Reports: Palpitations, Other - Tachycardia intermittently Abdominal: Reports: No Symptoms Reported Genitourinary Symptoms: Reports: Incontinent Musculoskeletal Complaints: Reports: No Symptoms Reported Neurological: Reports: No Symptoms Reported Skin: Reports: Other - Gaulding of the groin and perineal areas as well as the buttocks. This is from being wet from her urine incontinence. We placed a Aragon catheter to dependent drainage yesterday which should help. She is already on topical treatment for this. Endocrine: Reports: No Symptoms Reported - Vitals Vitals: Last Vital Signs Temp 35.8 C L 05/24/20 10:27 Pulse 145 H 05/24/20 11:15 Resp 24 H 05/24/20 11:15 BP 133/112 H 05/24/20 10:27 Pulse Ox 93 05/24/20 11:15 - Abnormal Lab Findings Abnormal Lab Findings: Abnormal Lab Results 05/24/20 05/24/20 Range/Units 07:30 07:30 WBC 22.9 H (4.0-10.5) K/mm3 MCHC 31.2 L (32-36) g/dl RDW 15.2 H (11.5-14.0) % Neutrophils % (Manual) 93 H (42-75) % Lymphocytes % (Manual) 4 L (20-51) % Neutrophils # (Manual) 21.3 H (1.3-6.0) K/mm3 Lymphocytes # (Manual) 0.9 L (1.5-3.5) k/mm3 Sodium 165 H* D (132-142) mmol/L Plasma Sodium 166 H* (130-142) mmol/L Chloride 127 H (97-106) mmol/L Anion Gap 15.3 H (6.8-13.8) mmol/L BUN 54 H (3-23) mg/dL Creatinine 1.76 H (0.4-1.4) mg/dL Est GFR (Non-Af Amer) 29 L (60-130) mL/min BUN/Creatinine Ratio 30.7 H (9.0-21.6) Random Glucose 141 H (70-110) mg/dL Calcium 7.7 L (7.9-10.9) mg/dL AST 117 H (0-48) U/L Albumin 2.3 L (3.4-5.0) gm/dl - EKG/Xray Findings EKG: supravent. tachycardia, Paroxymal atrial tachy, other - Frequent PACs and a shortened [place] interval. EKG read: Interp. by me - Exam Constitutional: Present: Somnolent, Obtunded, Elderly ENT Exam: Present: normal ENT inspection, hearing grossly normal, pharynx normal, TMs normal Neck: Present: non-tender, supple, normal inspection, trachea midline, limited range of motion Breasts: Present: Exam deferred Respiratory: Present: chest non-tender, lungs clear Cardiovascular/Chest: Present: normal peripheral pulses, regular rate, rhythm, no chest tenderness, no edema, no gallop, no JVD, no murmur, no rub Abdomen: Present: Normal bowel sounds, soft, nontender, nondistended, no rebound tenderness, no hepatospenomegaly, no masses /Rectal: Present: Exam deferred Extremity: Present: normal range of motion, non-tender, normal inspection, no pedal edema, no calf tenderness, normal capillary refill Skin Exam: Present: normal color, warm/dry, diaper rash Lymphatic: Present: no adenopathy Neurologic: Present: other - Difficult to assess since she cannot follow commands. No lateralizing deficits are seen. She does seem to open her eyes when her name is called and seems to track with her eyes with motion of the hand. She has advanced dementia by history. Appearance: Present: appropriate appearance, impaired insight, impaired recent memory, impaired remote memory Eye contact: Present: other - Unable to cooperate for eye exam Thoughts: Present: incoherent Cauti Physician Documentation - Urinary Catheter Management Urethral (Aragon) Urethral Indwelling: Yes Reason for Continuing Indwelling Catheter: Assist healing open wound Date of Insertion: 05/23/20 Time of Insertion: 13:30 Assessment/Plan Plan Narrative: 1. Increase D5W with potassium chloride 20 mEq to 250 cc/h. 2. Check serum and urine osmolality and a urinary spot sodium 3. Recheck labBMP at 4 hours after starting the increased IV fluid rate 4. Recheck lab again tomorrow morning 5. EKG done and interpreted by me 6. Continue continuous cardiac monitoring and intervene if necessary. I believe her SVT is probably related to her hyponatremia and mild dehydration. The first attempt at correcting this will be with fluid resuscitation again. - Problems/Diagnosis (1) Pneumonia due to COVID-19 virus Problem: Acute (2) Hypoxemia Problem: Acute (3) Dehydration Problem: Acute (4) CRF (chronic renal failure) Problem: Chronic Qualifiers: Chronic kidney disease stage: stage 3 (moderate) (5) CVA (cerebral vascular accident) Problem: Chronic Qualifiers: CVA mechanism: embolism Precerebral and cerebral artery: unspecified precerebral artery Qualified Code(s): I63.10 - Cerebral infarction due to embolism of unspecified precerebral artery (6) Bruise Problem: Acute (7) Sepsis due to severe acute respiratory syndrome coronavirus 2 (SARS-CoV-2) Problem: Acute (8) Acute kidney injury Problem: Acute (9) Acute kidney injury Problem: Acute (10) Secondary bacterial pneumonia Problem: Acute (11) Hypernatremia Problem: Acute (12) Supraventricular tachycardia by ECG Problem: Acute
[2020-05-24 14:30] LABS: Anion Gap 15.8 mmol/L (6.8-13.8); BUN/Creatinine Ratio 29.3 (9.0-21.6); Calcium * 7.7 mg/dL (7.9-10.9); Carbon Dioxide 24.9 mmol/L (24-32.6); Estimated Creat Clear 22.5; Potassium 3.7 mmol/L (3.4-4.6)
[2020-05-24] MEDS: ENALAPRILAT DIHYDRATE 1.25 MG/ML VIAL IV PRN (15:26)
[2020-05-24] MEDS ORDERED: FUROSEMIDE 10 MG/ML VIAL IV ONE (18:21)
[2020-05-24] MEDS: ENOXAPARIN SODIUM 30 MG/0.3 ML SYRG SC SCH (19:06)
[2020-05-25] MEDS: MORPHINE SULFATE 2 MG/ML DISP.SYRIN IV PRN ×4 (01:18→21:27)
[2020-05-25] MEDS: LORazepam 2 MG/ML DISP.SYRIN IV PRN ×3 (03:11→18:45)
[2020-05-25] MEDS: PANTOPRAZOLE SODIUM 40 MG in NORMAL SALINE 100 ML IV SCH ×2 (05:17→17:12)
[2020-05-25] MEDS: METHYLPREDNISOLONE SOD SUCC/PF 125 MG/2 ML VIAL IV SCH (09:13)
[2020-05-25] MEDS: NYSTATIN 15 APPL TUBE TP SCH ×2 (09:13→21:06)
[2020-05-25] MEDS: ACETAMINOPHEN 500 MG TABLET PO SCH ×3 (09:13→17:10)
[2020-05-25 10:46] LABS: Hematocrit 42.7 % (37.0-47.0); Hemoglobin 13.1 gm/dL (12.5-16.0); Mean Cell Volume 91.4 fl (78-100); Mean Corpuscular Hemoglobin 28.1 pg (27-31); Mean Corpuscular Hgb Conc 30.7 g/dl (32-36); Mean Platelet Volume 11.1 fl (8-12.5); Platelet Count 271 K/mm3 (150-450); Red Blood Count 4.67 M/mm3 (4.2-5.4); Red Cell Distribution Width 15.6 % (11.5-14.0); White Blood Count 17.1 K/mm3 (4.0-10.5)
[2020-05-25 10:51] LABS: Total Cells Counted 100
[2020-05-25] MEDS: POTASSIUM CHLORIDE 20 MEQ in DEXTROSE 5 % IN WATER 1,000 ML IV SCH ×4 (11:19→23:15)
[2020-05-25 11:20] LABS: Albumin * 2.2 gm/dl (3.4-5.0); Anion Gap 14.8 mmol/L (6.8-13.8); BUN/Creatinine Ratio 27.7 (9.0-21.6); Bilirubin, Total 0.4 mg/dL (0.0-1.1); Ca. Corrected For Albumin 8.7 mg/dL (8.4-10.2); Calcium * 7.6 mg/dL (7.9-10.9); Carbon Dioxide 26.4 mmol/L (24-32.6); Potassium 4.2 mmol/L (3.4-4.6); Total Protein 6.8 gm/dL (6.2-8.2)
[2020-05-25 11:41] LABS: Lymphocyte 2 % (20-51); Monocyte 1 % (0-9); Neutrophil 97 % (42-75); Neutrophil # 16.6 K/mm3 (1.3-6.0)
[2020-05-25 11:44] LABS: Giant Platelets 1+; Platelet Estimate Normal (NORMAL); RBC Morphology Normal (NORMAL)
--- NOTE | 2020-05-25 17:09 | PN ---
Subjective - Date and Time Seen Date: 05/25/20 Time: 08:00 Subjective Narrative: Adina has continued to have irregular heart rhythm and rate being tacky at times. An attempt was made to place her on high flow nasal cannula and to try to feed her something but she would not take anything orally and she desaturated very quickly. She is placed back on CPAP and it took a while to get her sats back up into the 90s but it is up to 97% this morning. She is currently on 100% oxygen for CPAP. I gave her 1 dose of furosemide and she urinated about 1300 cc of urine. She is mostly obtunded. She does not appear to be in any distress. She continues to open her eyes when her name is called but she is not responsive. Vital signs: Pulse = 90 5144 BP 158/78 Respirations = 20. O2 sat is 97% on FiO2 100 per CPAP Lab: WBC down to 17,100 and now with 0 bands. Hemoglobin is 13.1 g and hematocrit is 42.7%. The sodium remains high at 160. The potassium is normal at 4.2. Chloride is 122. CO2 is 26.4. BUN is down to 48 with a creatinine is up slightly to 1.73. The albumin is low at 2.2. Glucose is 136. The AST continues to fall is now 91. Objective - Review of Systems Generalized/Overall Review: Reports: Weakness, Malaise EENTM: Reports: No Symptoms Reported Respiratory: Reports: Shortness of Breath Cardiac: Reports: No Symptoms Reported Abdominal: Reports: No Symptoms Reported Genitourinary Symptoms: Reports: No Symptoms Reported Musculoskeletal Complaints: Reports: No Symptoms Reported Neurological: Reports: No Symptoms Reported Skin: Reports: No Symptoms Reported, Other - Bhardwaj areas in the groin and perineum Endocrine: Reports: No Symptoms Reported - Vitals Vitals: Last Vital Signs Temp 37 C 05/25/20 13:49 Pulse 144 H 05/25/20 15:05 Resp 20 05/25/20 15:05 BP 158/78 H 05/25/20 13:49 Pulse Ox 97 05/25/20 15:05 - Abnormal Lab Findings Abnormal Lab Findings: Abnormal Lab Results 05/25/20 05/25/20 Range/Units 10:41 10:41 WBC 17.1 H D (4.0-10.5) K/mm3 MCHC 30.7 L (32-36) g/dl RDW 15.6 H (11.5-14.0) % Neutrophils % (Manual) 97 H (42-75) % Lymphocytes % (Manual) 2 L (20-51) % Neutrophils # (Manual) 16.6 H (1.3-6.0) K/mm3 Lymphocytes # (Manual) 0.3 L (1.5-3.5) k/mm3 Sodium 159 H (132-142) mmol/L Plasma Sodium 160 H (130-142) mmol/L Chloride 122 H (97-106) mmol/L Anion Gap 14.8 H (6.8-13.8) mmol/L BUN 48 H (3-23) mg/dL Creatinine 1.73 H (0.4-1.4) mg/dL Est GFR (Non-Af Amer) 30 L (60-130) mL/min BUN/Creatinine Ratio 27.7 H (9.0-21.6) Random Glucose 136 H D (70-110) mg/dL Calcium 7.6 L (7.9-10.9) mg/dL AST 91 H (0-48) U/L Albumin 2.2 L (3.4-5.0) gm/dl - EKG/Xray Findings EKG: supravent. tachycardia, other - Premature atrial contractions EKG read: Interp. by me - Exam Constitutional: Present: Obtunded, Elderly, Thin and frail ENT Exam: Present: normal ENT inspection Neck: Present: non-tender, supple, trachea midline, limited range of motion Breasts: Present: Exam deferred Respiratory: Present: chest non-tender, lungs clear, normal breath sounds Cardiovascular/Chest: Present: normal peripheral pulses, regular rate, rhythm, no chest tenderness, no edema, no gallop, no JVD, no murmur, no rub Abdomen: Present: Normal bowel sounds, soft, nontender, nondistended, no rebound tenderness, no hepatospenomegaly, no masses /Rectal: Present: Exam deferred Extremity: Present: normal range of motion, non-tender, normal inspection, no pedal edema, no calf tenderness, normal capillary refill Skin Exam: Present: normal color, warm/dry, no cyanosis Neurologic: Present: other - No lateralizing deficits are apparent. Mental status remains poor. Difficult to assess otherwise because of her obtunded status. Appearance: Present: appropriate appearance, impaired insight Eye contact: Present: other - Unable to cooperate Thoughts: Present: incoherent Cauti Physician Documentation - Urinary Catheter Management Urethral (Aragon) Urethral Indwelling: Yes Date of Insertion: 05/23/20 Time of Insertion: 13:30 Assessment/Plan Plan Narrative: I spoke with Margi this evening and discussed end-of-life measures with her. She is going to talk to her sister and perhaps other relatives to see if they want to go to hospice or comfort measures. In the meantime I will continue to give her IV fluids and other meds as written. She does have morning labs and a chest x-ray pending for tomorrow. - Problems/Diagnosis (1) Pneumonia due to COVID-19 virus Problem: Acute (2) Hypoxemia Problem: Acute (3) Dehydration Problem: Acute (4) CRF (chronic renal failure) Problem: Chronic Qualifiers: Chronic kidney disease stage: stage 3 (moderate) (5) CVA (cerebral vascular accident) Problem: Chronic Qualifiers: CVA mechanism: embolism Precerebral and cerebral artery: unspecified precerebral artery Qualified Code(s): I63.10 - Cerebral infarction due to embolism of unspecified precerebral artery (6) Bruise Problem: Acute (7) Sepsis due to severe acute respiratory syndrome coronavirus 2 (SARS-CoV-2) Problem: Acute (8) Acute kidney injury Problem: Acute (9) Acute kidney injury Problem: Acute (10) Secondary bacterial pneumonia Problem: Acute (11) Hypernatremia Problem: Acute (12) Supraventricular tachycardia by ECG Problem: Acute
[2020-05-25] MEDS: ENOXAPARIN SODIUM 30 MG/0.3 ML SYRG SC SCH (18:36)
[2020-05-25] MEDS: ENALAPRILAT DIHYDRATE 1.25 MG/ML VIAL IV PRN (18:37)
[2020-05-26] MEDS: MORPHINE SULFATE 2 MG/ML DISP.SYRIN IV PRN ×6 (00:56→20:06)
[2020-05-26] MEDS: LORazepam 2 MG/ML DISP.SYRIN IV PRN ×3 (02:48→15:02)
[2020-05-26] MEDS: PANTOPRAZOLE SODIUM 40 MG in NORMAL SALINE 100 ML IV SCH ×2 (05:41→16:08)
[2020-05-26 06:52] LABS: Hematocrit 44.6 % (37.0-47.0); Hemoglobin 13.5 gm/dL (12.5-16.0); Mean Cell Volume 93.1 fl (78-100); Mean Corpuscular Hemoglobin 28.2 pg (27-31); Mean Corpuscular Hgb Conc 30.3 g/dl (32-36); Mean Platelet Volume 11.6 fl (8-12.5); Platelet Count 263 K/mm3 (150-450); Red Blood Count 4.79 M/mm3 (4.2-5.4); Red Cell Distribution Width 15.3 % (11.5-14.0); White Blood Count 16.2 K/mm3 (4.0-10.5)
[2020-05-26 06:56] LABS: Albumin * 2.2 gm/dl (3.4-5.0); Anion Gap 12.7 mmol/L (6.8-13.8); BUN/Creatinine Ratio 29.7 (9.0-21.6); Bilirubin, Total 0.6 mg/dL (0.0-1.1); Ca. Corrected For Albumin 8.3 mg/dL (8.4-10.2); Calcium * 7.2 mg/dL (7.9-10.9); Carbon Dioxide 27.7 mmol/L (24-32.6); Potassium 4.4 mmol/L (3.4-4.6)
[2020-05-26 07:04] LABS: Total Cells Counted 100
[2020-05-26 07:33] LABS: Atypical (Reactive) Lymph 2 % (0-2); Band 2 % (0-2.0); Lymphocyte 2 % (20-51); Neutrophil 94 % (42-75); Neutrophil # 15.2 K/mm3 (1.3-6.0)
[2020-05-26 07:38] LABS: Platelet Estimate Normal (NORMAL); RBC Morphology Normal (NORMAL)
[2020-05-26] MEDS: METHYLPREDNISOLONE SOD SUCC/PF 125 MG/2 ML VIAL IV SCH ×2 (07:41→08:45)
[2020-05-26] MEDS: ACETAMINOPHEN 500 MG TABLET PO SCH (08:45)
[2020-05-26] MEDS: NYSTATIN 15 APPL TUBE TP SCH ×2 (08:45→20:09)
[2020-05-26] MEDS ORDERED: DILTIAZEM HCL 5 MG/ML VIAL IV ONE (09:38)
--- NOTE | 2020-05-26 09:54 | PN ---
Subjective - Date and Time Seen Date: 05/26/20 Time: 09:15 Subjective Narrative: She remains in A-fib with RVR. Otherwise her condition has not changed much. Her FIO2 has been decreased from 100% to 80% but her respiratory rate has gone up to 30. K is up to 4.4. Na is down to 57. Mild improvement in renal status. I spoke with Margi yesterday and she is going to talk to her family about considering hospice or comfort measures. WBC count is down to 17K. AST continues to grauall come down. Objective - Review of Systems EENTM: Reports: No Symptoms Reported Respiratory: Reports: Shortness of Breath Cardiac: Reports: Other - tachycardia Abdominal: Reports: No Symptoms Reported Genitourinary Symptoms: Reports: No Symptoms Reported Musculoskeletal Complaints: Reports: No Symptoms Reported Neurological: Reports: No Symptoms Reported Skin: Reports: No Symptoms Reported Endocrine: Reports: No Symptoms Reported - Vitals Vitals: Last Vital Signs Temp 36.2 C 05/26/20 07:56 Pulse 157 H 05/26/20 08:07 Resp 30 H 05/26/20 08:07 BP 138/90 H 05/26/20 07:56 Pulse Ox 93 05/26/20 08:07 - Abnormal Lab Findings Abnormal Lab Findings: Abnormal Lab Results 05/25/20 05/25/20 05/26/20 Range/Units 10:41 10:41 06:30 WBC 17.1 H D 16.2 H (4.0-10.5) K/mm3 MCHC 30.7 L 30.3 L (32-36) g/dl RDW 15.6 H 15.3 H (11.5-14.0) % Neutrophils % (Manual) 97 H 94 H (42-75) % Lymphocytes % (Manual) 2 L 2 L (20-51) % Neutrophils # (Manual) 16.6 H 15.2 H (1.3-6.0) K/mm3 Lymphocytes # (Manual) 0.3 L 0.3 L (1.5-3.5) k/mm3 Sodium 159 H (132-142) mmol/L Plasma Sodium 160 H (130-142) mmol/L Chloride 122 H (97-106) mmol/L Anion Gap 14.8 H (6.8-13.8) mmol/L BUN 48 H (3-23) mg/dL Creatinine 1.73 H (0.4-1.4) mg/dL Est GFR (Non-Af Amer) 30 L (60-130) mL/min BUN/Creatinine Ratio 27.7 H (9.0-21.6) Random Glucose 136 H D (70-110) mg/dL Calcium 7.6 L (7.9-10.9) mg/dL Calcium Adj for Albumin (8.4-10.2) mg/dL AST 91 H (0-48) U/L Albumin 2.2 L (3.4-5.0) gm/dl 05/26/20 Range/Units 06:30 WBC (4.0-10.5) K/mm3 MCHC (32-36) g/dl RDW (11.5-14.0) % Neutrophils % (Manual) (42-75) % Lymphocytes % (Manual) (20-51) % Neutrophils # (Manual) (1.3-6.0) K/mm3 Lymphocytes # (Manual) (1.5-3.5) k/mm3 Sodium 157 H (132-142) mmol/L Plasma Sodium 157 H (130-142) mmol/L Chloride 121 H (97-106) mmol/L Anion Gap (6.8-13.8) mmol/L BUN 46 H (3-23) mg/dL Creatinine 1.55 H (0.4-1.4) mg/dL Est GFR (Non-Af Amer) 34 L (60-130) mL/min BUN/Creatinine Ratio 29.7 H (9.0-21.6) Random Glucose 122 H (70-110) mg/dL Calcium 7.2 L (7.9-10.9) mg/dL Calcium Adj for Albumin 8.3 L (8.4-10.2) mg/dL AST 87 H (0-48) U/L Albumin 2.2 L (3.4-5.0) gm/dl - EKG/Xray Findings EKG: atrial fibrillation, other - with RVR EKG read: Interp. by me XRAY: chest Interpretation: Reviewed by me - Exam Constitutional: Present: Obtunded, Elderly ENT Exam: Present: normal ENT inspection Neck: Present: non-tender Breasts: Present: Exam deferred Respiratory: Present: decreased breath sounds, other - tachypnea Cardiovascular/Chest: Present: normal peripheral pulses, irregularly irregular Abdomen: Present: Normal bowel sounds, soft, tender - on palpation she winces. /Rectal: Present: Exam deferred Extremity: Present: normal range of motion, non-tender, normal inspection, no pedal edema, no calf tenderness Skin Exam: Present: normal color Lymphatic: Present: no adenopathy Neurologic: Present: accounting support specialist II-XII nml as tested, other - no laterralizing deficits Appearance: Present: appropriate appearance Eye contact: Present: other - unable to cooperate Cauti Physician Documentation - Urinary Catheter Management Urethral (Aragon) Urethral Indwelling: Yes Date of Insertion: 05/23/20 Time of Insertion: 13:30 Assessment/Plan Plan Narrative: 1. Change IV fluids to just D5W @ 125cc/hr. (Removed the K+). 2. Increased the Lorazepam due to restlessness on 1mg. 3. Anticipate going to comfort measures soon 4. Trial dose of Diltiazem 5mg IV for her A fib with rvr. - Problems/Diagnosis (1) Pneumonia due to COVID-19 virus Problem: Acute (2) Hypoxemia Problem: Acute (3) Dehydration Problem: Acute (4) CRF (chronic renal failure) Problem: Chronic Qualifiers: Chronic kidney disease stage: stage 3 (moderate) (5) CVA (cerebral vascular accident) Problem: Chronic Qualifiers: CVA mechanism: embolism Precerebral and cerebral artery: unspecified precerebral artery Qualified Code(s): I63.10 - Cerebral infarction due to embolism of unspecified precerebral artery (6) Bruise Problem: Acute (7) Sepsis due to severe acute respiratory syndrome coronavirus 2 (SARS-CoV-2) Problem: Acute (8) Acute kidney injury Problem: Acute (9) Acute kidney injury Problem: Acute (10) Secondary bacterial pneumonia Problem: Acute (11) Hypernatremia Problem: Acute (12) Atrial fibrillation with RVR Problem: Acute
[2020-05-26] MEDS: POTASSIUM CHLORIDE 20 MEQ in DEXTROSE 5 % IN WATER 1,000 ML IV SCH ×2 (10:32)
[2020-05-26] MEDS: DEXTROSE 5 % IN WATER 1,000 ML IV PRN (10:40)
[2020-05-26] MEDS: ENOXAPARIN SODIUM 30 MG/0.3 ML SYRG SC SCH (18:23)
[2020-05-27] MEDS: LORazepam 2 MG/ML DISP.SYRIN IV PRN ×5 (00:21→23:08)
[2020-05-27] MEDS: MORPHINE SULFATE 2 MG/ML DISP.SYRIN IV PRN ×2 (03:29→08:39)
[2020-05-27] MEDS: PANTOPRAZOLE SODIUM 40 MG in NORMAL SALINE 100 ML IV SCH ×2 (04:23→17:19)
[2020-05-27 07:28] LABS: Hematocrit 42.7 % (37.0-47.0); Hemoglobin 12.8 gm/dL (12.5-16.0); Mean Cell Volume 94.1 fl (78-100); Mean Corpuscular Hemoglobin 28.2 pg (27-31); Mean Platelet Volume 11.8 fl (8-12.5); Platelet Count 220 K/mm3 (150-450); Red Blood Count 4.54 M/mm3 (4.2-5.4); Red Cell Distribution Width 15.3 % (11.5-14.0); White Blood Count 16.9 K/mm3 (4.0-10.5)
[2020-05-27 07:32] LABS: Total Cells Counted 100
[2020-05-27 07:41] LABS: Anion Gap 15.6 mmol/L (6.8-13.8); BUN/Creatinine Ratio 29.5 (9.0-21.6); Bilirubin, Total 0.4 mg/dL (0.0-1.1); Ca. Corrected For Albumin 8.9 mg/dL (8.4-10.2); Calcium * 7.6 mg/dL (7.9-10.9); Carbon Dioxide 27.6 mmol/L (24-32.6); Potassium 4.2 mmol/L (3.4-4.6); Total Protein 6.6 gm/dL (6.2-8.2)
[2020-05-27 08:10] LABS: Band 6 % (0-2.0); Immature Granulocyte 1 (0-1); Monocyte 2 % (0-9); Neutrophil 91 % (42-75); Neutrophil # 15.4 K/mm3 (1.3-6.0)
[2020-05-27 08:11] LABS: Platelet Estimate Normal (NORMAL)
[2020-05-27 08:12] LABS: Giant Platelets 1+; Toxic Granulation 1+
[2020-05-27 08:13] LABS: Hypochromia Trace; Polychromasia Trace
[2020-05-27] MEDS: METHYLPREDNISOLONE SOD SUCC/PF 125 MG/2 ML VIAL IV SCH (08:38)
[2020-05-27] MEDS: NYSTATIN 15 APPL TUBE TP SCH ×2 (08:38→20:27)
[2020-05-27] MEDS ORDERED: DILTIAZEM HCL 5 MG/ML VIAL IV SCH (10:00)
--- NOTE | 2020-05-27 12:56 | PN ---
Subjective - Date and Time Seen Date: 05/27/20 Time: 09:50 Subjective Narrative: There is not much change in his status this morning. Her FiO2 had to be increased up to 95% again. She remains in atrial fib with RVR ranging from 70- 140. A test dose of 5 mg of diltiazem had no effect yesterday. She has had 2 doses today and it is not affecting her heart rate or blood pressure. Her sodium is gone back up to 161. Reason is uncertain. The urine osmolality is 632. Still waiting serum osmolality results. The family is considering hospice versus comfort measures. I would suggest comfort measures because once the CPAP is removed she will decline very rapidly to . Objective - Review of Systems Generalized/Overall Review: Reports: Weakness EENTM: Reports: No Symptoms Reported Respiratory: Reports: Shortness of Breath Cardiac: Reports: Other - Atrial for with RVR Abdominal: Reports: No Symptoms Reported Genitourinary Symptoms: Reports: No Symptoms Reported Musculoskeletal Complaints: Reports: No Symptoms Reported Neurological: Reports: Other - No lateralizing deficits but difficult to assess otherwise Skin: Reports: No Symptoms Reported - Vitals Vitals: Last Vital Signs Temp 36.4 C 05/27/20 10:12 Pulse 134 H 05/27/20 11:20 Resp 15 05/27/20 11:20 BP 146/82 05/27/20 10:12 Pulse Ox 95 05/27/20 11:20 - Abnormal Lab Findings Abnormal Lab Findings: Abnormal Lab Results 05/24/20 05/27/20 05/27/20 Range/Units 07:30 07:19 07:19 WBC 16.9 H (4.0-10.5) K/mm3 MCHC 30.0 L (32-36) g/dl RDW 15.3 H (11.5-14.0) % Neutrophils % (Manual) 91 H (42-75) % Band Neuts % (Manual) 6 H (0-2.0) % Neutrophils # (Manual) 15.4 H (1.3-6.0) K/mm3 Sodium 161 H (132-142) mmol/L Plasma Sodium 161 H* (130-142) mmol/L Chloride 122 H (97-106) mmol/L Anion Gap 15.6 H (6.8-13.8) mmol/L BUN 56 H (3-23) mg/dL Creatinine 1.90 H (0.4-1.4) mg/dL Est GFR (Non-Af Amer) 27 L D (60-130) mL/min BUN/Creatinine Ratio 29.5 H (9.0-21.6) Random Glucose 126 H (70-110) mg/dL Serum Osmolality 349 H mOsm/kg Calcium 7.6 L (7.9-10.9) mg/dL AST 67 H (0-48) U/L Albumin 2.0 L (3.4-5.0) gm/dl - Exam Constitutional: Present: Obtunded, Elderly ENT Exam: Present: normal ENT inspection Neck: Present: non-tender, full range of motion, supple, normal inspection Breasts: Present: Exam deferred, Nontender Respiratory: Present: chest non-tender, lungs clear, respiratory distress Cardiovascular/Chest: Present: normal peripheral pulses, no chest tenderness, no edema, no gallop, no JVD, no murmur, tachycardia, irregularly irregular Abdomen: Present: Normal bowel sounds, soft, nondistended, no hepatospenomegaly, no masses /Rectal: Present: Exam deferred Extremity: Present: normal range of motion, non-tender, normal inspection, no pedal edema, no calf tenderness, normal capillary refill Skin Exam: Present: normal color, warm/dry, no cyanosis Lymphatic: Present: no adenopathy Neurologic: Present: other - Obtunded mentation Appearance: Present: appropriate appearance Eye contact: Present: other - Unable to cooperate Thoughts: Present: incoherent Cauti Physician Documentation - Urinary Catheter Management Urethral (Aragon) Urethral Indwelling: Yes Date of Insertion: 05/23/20 Time of Insertion: 13:30 Assessment/Plan Plan Narrative: 1. I will asked Dr. Cash to consult Re: Her hypernatremia and get a second opinion about her hypoxemia from COVID-19. 2. Start diltiazem drip 3. Repeat lab again tomorrow morning unless she is on comfort measures. - Problems/Diagnosis (1) Pneumonia due to COVID-19 virus Problem: Acute (2) Hypoxemia Problem: Acute (3) Dehydration Problem: Acute (4) CRF (chronic renal failure) Problem: Chronic Qualifiers: Chronic kidney disease stage: stage 3 (moderate) (5) CVA (cerebral vascular accident) Problem: Chronic Qualifiers: CVA mechanism: embolism Precerebral and cerebral artery: unspecified precerebral artery Qualified Code(s): I63.10 - Cerebral infarction due to embolism of unspecified precerebral artery (6) Bruise Problem: Acute (7) Sepsis due to severe acute respiratory syndrome coronavirus 2 (SARS-CoV-2) Problem: Acute (8) Acute kidney injury Problem: Acute (9) Acute kidney injury Problem: Acute (10) Secondary bacterial pneumonia Problem: Acute (11) Hypernatremia Problem: Acute (12) Atrial fibrillation with RVR Problem: Acute (13) Acute respiratory failure with hypoxemia Problem: Acute
[2020-05-27] MEDS: DILTIAZEM HCL 5 MG/ML VIAL IV SCH ×2 (16:50→22:34)
--- NOTE | 2020-05-27 17:36 | CONS ---
HPI - General Date of Service: 05/27/20 Narrative: She is currently not verbal, withdraws to painful and tactile stimuli. Source: other - staff - History of Present Illness Allergies/Adverse Reactions: Allergies simvastatin [From Zocor] Adverse Reaction (Mild, Verified 05/21/20 17:19) MYALGIA Home Medications: Home Medications Medication Instructions Recorded Last Taken Durable Medical Equipment See Dose Instructions .ROUTE 01/17/19 Unknown .MEDSUPPLY #1 ea ibuprofen 600 mg tablet 600 mg PO Q6H PRN #90 tab 01/17/19 Unknown tramadol 50 mg tablet 50 mg PO Q6H PRN #60 tab 01/17/19 Unknown aspirin 81 mg tablet,delayed 81 mg PO DAILY #90 tab 11/15/19 Unknown release clopidogrel 75 mg tablet 75 mg PO DAILY #90 tab 11/15/19 Unknown hydrochlorothiazide 25 mg tablet 25 mg PO DAILY #90 tab 11/15/19 Unknown potassium chloride 10 mEq 10 meq PO DAILY #90 tab 11/15/19 Unknown tablet,extended release acetaminophen 500 mg capsule 500 mg PO DAILY PRN #30 cap 03/24/20 Unknown acetaminophen 500 mg capsule 500 mg PO TID #90 cap 03/25/20 Unknown loperamide 2 mg tablet 2 mg PO .COMPLEX PRN #30 tab 05/15/20 Unknown Alendronate Sodium [Fosamax] 70 mg PO TU 05/21/20 Unknown Atorvastatin Calcium 40 mg PO HS 05/21/20 Unknown Bisacodyl 5 mg PO DAILY PRN 05/21/20 Unknown Escitalopram Oxalate 5 mg PO DAILY 05/21/20 Unknown Escitalopram Oxalate 10 mg PO DAILY 05/21/20 Unknown Fexofenadine HCl [Aller-Ease] 180 mg PO DAILY 05/21/20 Unknown Lisinopril [Zestril] 40 mg PO BID 05/21/20 Unknown Omeprazole 20 mg PO QAM 05/21/20 Unknown cholecalciferol (vitamin D3) 50 1 tab PO DAILY 05/21/20 Unknown mcg (2,000 unit) tablet docusate sodium 100 mg capsule 200 mg PO DAILY #56 cap 05/26/20 Unknown Procedures APPLICATION OF SPLINT (07/31/09) Colonoscopy (06/15/04) ENDOSC POLYPECTOMY OF LG INTEST (06/03/09) Fasciotomy (09/12/01) Injection of anesthetic into spinal canal for analgesia (02/21/03) Injection of other agent into spinal canal (02/21/03) Injection of steroid (02/21/03) Laparoscopic cholecystectomy (11/25/08) Laparoscopic lysis of peritoneal adhesions (11/25/08) Local excision of lesion or tissue of bone, tarsals and metatarsals (09/12/01) OP RED-INT FIX RAD/ULNA (08/03/09) Open reduction of fracture with internal fixation, humerus (06/22/12) Replacement of Right Lens with Synthetic Substitute, Percutaneous Approach (04/27/15) Medications - Medications Current Medications: Current Medications Enalaprilat (Enalaprilat Dihydrate 1.25 Mg/Ml Vial) 1.25 mg IV Q6H PRN PRN Reason: hypertension Stop: 06/22/20 13:01 Last Admin: 05/25/20 18:37 Dose: 1.25 mg Documented by: Enoxaparin Sodium (Enoxaparin Sodium 30 Mg/0.3 Ml Syrg) 30 mg SC Q24H [facility] Stop: 06/20/20 18:31 Last Admin: 05/26/20 18:23 Dose: 30 mg Documented by: Ceftriaxone Sodium 1,000 mg/ (Dextrose/Water) 100 mls @ 200 mls/hr IV Q24H [facility]; Protocol Stop: 06/21/20 07:01 Last Infusion: 05/27/20 14:55 Dose: Infused Documented by: Pantoprazole Sodium 40 mg/ (Sodium Chloride) 100 mls @ 400 mls/hr IV Q12H [facility] Stop: 06/21/20 17:01 Last Infusion: 05/27/20 04:38 Dose: Infused Documented by: Dextrose/Water (Dextrose 5%/Water) 1,000 mls @ 30 mls/hr IV .Q24H PRN PRN Reason: HYDRATION Stop: 06/25/20 09:30 Last Admin: 05/26/20 10:40 Dose: 30 mls/hr Documented by: Lorazepam (Lorazepam 2 Mg/Ml Disp.Syrin) 2 mg IV Q1H PRN PRN Reason: Anxiety Stop: 06/20/20 16:16 Last Admin: 05/27/20 10:27 Dose: 2 mg Documented by: Methylprednisolone Sodium Succinate (Methylprednisolone Sod Succ/Pf 125 Mg/2 Ml Vial) 62.5 mg IV DAILY [facility] Stop: 06/24/20 09:01 Last Admin: 05/27/20 08:38 Dose: 62.5 mg Documented by: Morphine Sulfate (Morphine Sulfate 2 Mg/Ml Disp.Syrin) 2 mg IV Q2H PRN PRN Reason: Pain Stop: 06/22/20 19:04 Last Admin: 05/27/20 08:39 Dose: 2 mg Documented by: Nystatin (Nystatin 15 Appl Tube) 1 appl TP BID KRYSTAL Stop: 06/21/20 09:01 Last Admin: 05/27/20 08:38 Dose: 1 appl Documented by: Review of Systems - Review of Systems Generalized/Overall Review: Absent: Fever Respiratory: Present: Shortness of Breath Misc: All systems neg except as marked Physical Examination - Exam Vital Signs: Vital Signs - Last Taken Temp 36.7 C 05/27/20 13:34 Pulse 94 05/27/20 13:34 Resp 15 05/27/20 13:34 BP 130/68 05/27/20 13:34 Pulse Ox 99 05/27/20 13:34 O2 Oxygen Delivery Method Bi-pap Constitutional: Present: Alert, Elderly Neck: Present: non-tender, supple. Absent: lymphadenopathy (R), lymphadenopathy (L) Respiratory: Present: lungs clear, no accessory muscle use, No wheezing. Absent: crackles, rhonchi Cardiovascular/Chest: Present: normal peripheral pulses, no murmur, tachycardia Peripheral Pulses: dorsalis-pedis (R): 1+, dorsalis-pedis (L): 1+ Abdomen: Present: Normal bowel sounds, soft, nontender /Rectal: Present: Other - parish in place Extremity: Present: no pedal edema Skin Exam: Present: normal color, warm/dry Neurologic: Present: alert, other Appearance: Present: appropriate appearance Eye contact: Absent: cooperative, good eye contact Thoughts: Absent: normal thought pattern - Results and Findings: Narrative: 85-year-old female with a past medical history of CVA, depression, hyperlipidemia, hypertension, osteoporosis and anxiety was admitted on May 21, 2020 for management of Covid 19 pneumonia. At that time she was also found have mild hypernatremia at 146. Since admission her sodium has continued to worsen and is currently 161. Her respiratory status has also declined and she is currently on BiPAP. It appears she has had 4 to 5 L of D5 water with potassium since May 24, 2020. Her sodium levels were improving from 166-157 but have trended up again today to 161. She is on BiPAP at 95 FiO2. The nurse states that when he removes the BiPAP for oral care she drops her oxygen saturations into the 70s. She has not been able to be tapered down on the BiPAP. She still has a 4 L water deficit. Correction goal is 10 mEq per 24-hour timeframe. I recommend increasing her D5 water rate to 80 to 90 cc/h, recheck sodium in the morning. Patient is unable to be weaned off of the BiPAP for the past 6 days. If the BiPAP is removed she will decline and will not be able to maintain adequate oxygenation. There are several options including consulting with a reversal print inspector versus considering comfort measures versus transferring the patient to a higher level of care. Plan #1 I recommend increasing her D5 water rate to 80 to 90 cc/h, recheck sodium in the morning. #2 continue with BiPAP and consider consulting with pulmonology. Lab/Microbiology results last 24 hrs: Abnormal/Pending Laboratory Last 24 HRS 05/27/20 05/27/20 05/24/20 07:19 07:19 07:30 WBC 16.9 H MCHC 30.0 L RDW 15.3 H Neutrophils % (Manual) 91 H Band Neuts % (Manual) 6 H Neutrophils # (Manual) 15.4 H Sodium 161 H Plasma Sodium 161 H* Chloride 122 H Anion Gap 15.6 H BUN 56 H Creatinine 1.90 H Est GFR (Non-Af Amer) 27 L D BUN/Creatinine Ratio 29.5 H Random Glucose 126 H Serum Osmolality 349 H Calcium 7.6 L AST 67 H Albumin 2.0 L - Assessments/Findings (1) Pneumonia due to COVID-19 virus Problem: Acute (2) Hypoxemia Problem: Acute (3) Dehydration Problem: Acute (4) Hypernatremia Problem: Acute (5) Depression Problem: Chronic Qualifiers: Depression Type: unspecified Qualified Code(s): F32.9 - Major depressive disorder, single episode, unspecified (6) Hyperlipidemia Problem: Chronic Qualifiers: Hyperlipidemia type: pure hypercholesterolemia Qualified Code(s): E78.00 - Pure hypercholesterolemia, unspecified (7) Hypertension Problem: Chronic Qualifiers: Hypertension type: essential hypertension Qualified Code(s): I10 - Es sential (primary) hypertension (8) Acute kidney injury Problem: Acute (9) Acute respiratory failure with hypoxemia Problem: Acute
[2020-05-27] MEDS: ENOXAPARIN SODIUM 30 MG/0.3 ML SYRG SC SCH (20:26)
[2020-05-27] MEDS: DEXTROSE 5 % IN WATER 1,000 ML IV PRN (22:37)
[2020-05-28] MEDS: DILTIAZEM HCL 5 MG/ML VIAL IV SCH ×2 (03:42→09:10)
[2020-05-28] MEDS: LORazepam 2 MG/ML DISP.SYRIN IV PRN (03:42)
[2020-05-28] MEDS: PANTOPRAZOLE SODIUM 40 MG in NORMAL SALINE 100 ML IV SCH (04:56)
[2020-05-28 07:53] VITALS: BP 148/68
[2020-05-28] MEDS: METHYLPREDNISOLONE SOD SUCC/PF 125 MG/2 ML VIAL IV SCH (09:08)
[2020-05-28] MEDS: MORPHINE SULFATE 2 MG/ML DISP.SYRIN IV PRN (09:09)
[2020-05-28] MEDS: NYSTATIN 15 APPL TUBE TP SCH (09:34)
[2020-05-28] MEDS ORDERED: LORazepam 2 MG/ML DISP.SYRIN IV PRN ×2 (11:14→11:59)
[2020-05-28] MEDS ORDERED: MORPHINE SULFATE 10 MG/ML SYRG IV ONE ×2 (11:30→11:56)
[2020-05-28] MEDS ORDERED: MORPHINE SULFATE 4 MG/ML SYRG IV PRN (11:58)
--- NOTE | 2020-05-28 17:36 | DS ---
Discharge Summary - Provider Primary Care Provider: Angela Barbosa - Date and Time Date of : 05/28/20 Time of : 13:06 - Diagnosis/Cause of (1) Pneumonia due to COVID-19 virus Problems: Acute (2) Hypoxemia Problems: Acute (3) Dehydration Problems: Acute (4) CRF (chronic renal failure) Problems: Chronic (5) CVA (cerebral vascular accident) Problems: Chronic (6) Bruise Problems: Acute (7) Sepsis due to severe acute respiratory syndrome coronavirus 2 (SARS-CoV-2) Problems: Acute (8) Acute kidney injury Problems: Acute (9) Secondary bacterial pneumonia Problems: Acute (10) Hypernatremia Problems: Acute (11) Atrial fibrillation with RVR Problems: Acute (12) Acute respiratory failure with hypoxemia Problems: Acute - Summary Details (narrative): Adina Roy, age 85, was admitted on May 21 with COVID-19 pneumonia. Her condition worsened and she eventually moved from nasal cannula to nonrebreather mask to CPAP. She has been on CPAP for the past 6 days and has not improved. She developed heart dysrhythmia and atrial fibrillation. Her sodium increased to 164. With IV fluids I was able to get it down to 157 yesterday but today is back up to 161. I had Dr. Cash consult yesterday about her hypernatremia and for a second opinion as to whether she was appropriate for comfort care to which she concurred. I spoken with her daughter Margi a couple of times and discussed comfort measures. She consulted her sisters and they are in agreement to do that and today was the day to start comfort measures. I had her given 5 mg of morphine and 2 mg of lorazepam before removing the CPAP and placing her on a nonrebreather mask. She is still appeared somewhat uncomfortable so we gave another 5 mg of morphine. All monitoring was discontinued. Her breathing became agonal and then she at 1356 this afternoon. Family was at bedside. [facility]. Procedures Performed: none - Additional Data Confirmation of as documented by pronouncing clinician: no pulse, no respirations, no heart sounds, pupils fixed and dilated Family: at bedside Practitioner(Attending/PCP) notified: Yes Was code activated: No Autopsy requested: No Supervisor Shearing notified: No [employer] notified: Yes Advance Directives: Yes Hospice patient: No
== END 2020-05-28 13:56 | disposition expired | DRG 871 ==
LOC: ER 09:21 → MS 13:13 → SCU 16:28 → MS 05-28 12:03
PROVIDERS: ADMIT Family Medicine; ATTEND Family Medicine
DX: R65.20 Severe sepsis without septic shock; A41.89 Other specified sepsis; I47.1 Supraventricular tachycardia; J96.01 Acute respiratory failure with hypoxia; U07.1 COVID-19; J12.89 Other viral pneumonia; E87.2 Acidosis; E87.0 Hyperosmolality and hypernatremia; J15.9 Unspecified bacterial pneumonia; N17.9 Acute kidney failure, unspecified; N18.30 Chronic kidney disease, stage 3 unspecified; I12.9 Hypertensive chronic kidney disease with stage 1 through stage 4 chronic kidney disease, or unspecified chronic kidney disease; F02.80 Dementia in other diseases classified elsewhere, unspecified severity, without behavioral disturbance, psychotic disturbance, mood disturbance, and anxiety; I48.91 Unspecified atrial fibrillation; E86.0 Dehydration; Z86.73 Personal history of transient ischemic attack (TIA), and cerebral infarction without residual deficits; G30.9 Alzheimer's disease, unspecified; E87.6 Hypokalemia